=== PATIENT | female | born 1930 | race African-American/Black ===

== ENCOUNTER 2016-07-25 17:00 | Emergency (ER) | payer MEDICARE ==
[~2016-07-25] VITALS: Wt 45.4 kg
[~2016-07-25 17:00] MED LIST: 'BIAXIN500 MG PO; 'CLONIDINE0.1 MG PO; 'CYPROHEPTADINE4 MG PO; ACCUNEB 0.0.63 MG/3 INH; ACETAMINOPHEN325 M2 PO; ACETAMINOPHEN650 M5 PO; ALTACE10 MG PO; AMLODIPINE BESY1 TAB PO; AMOXICILLIN500 MG PO; ANTIVERT/2525 MG PO; ANTIVERT25 MG PO; APAP/OXYCODONE1 TA2 PO; ASPIR 8181 MG PO; ASPIRIN ADULT L81 M2 PO; ASPIRIN81 M1 PO; ATROVENT0.018 MG/A IH; CALCIUM ACETAT667 MG PO; CARAFATE1 GM PO; CATAPRES T0.3 MG/24 TD; CATAPRES-TTS 30.3 MG PO; CATAPRES-TTS 30.3 MG TD; CEPACOL2 M1 MM; CLONIDINE HCL0.1 MG PO; CLONIDINE0.1 MG PO; COLACE-T100 MG PO; COLACE100 MG PO; COMPAZINE10 MG PO; COZAAR100 MG PO; DEEP SEA 45 ML45 ML NAS; EVISTA60 MG PO; FISH OIL 500MG500 MG PO; FISH OIL PO; HYDROCODONE BIT1 T11 PO; IMDUR ER30 MG PO; IMDUR60 MG PO; KIONEX15 GM/60 M; LABETALOL HCL300 MG PO; LABETALOL HYDR300 MG PO; LABETALOL300 MG PO; LASIX20 MG PO; LASIX40 MG PO; LEVAQUIN750 M1 PO; LISINOPRIL10 MG PO; LISINOPRIL40 MG PO; LONITEN10 MG PO; LONITEN2.5 MG PO; MEGACE 40400 MG/10 PO; MEGACE40 MG PO; MINOXIDIL10 MG PO; MINOXIDIL2.5 MG PO; MIRALAX17 GM/DOSE PO; MOTRIN400 MG PO; Motrin,Rufen400 MG PO; NEPHRO-VITE RX1 TAB PO; NEPHRO-VITE1 TA1 PO; NEPHRO-VITE1 TAB PO; NORVASC10 MG PO; NORVASC5 MG PO; OCEAN NASAL SPR45 ML NAS; OMEPRAZOLE D/R20 MG PO; OMNICEF300 MG PO; OYSTER CALCIUM500 M1 PO; OYSTER SHELL C500 M2 PO; PANTOPRAZOLE40 MG PO; PLAVIX75 MG PO; PRAVACHOL20 MG PO; PRAVACHOL40 MG PO; PRAVACHOL80 MG PO; PREDNISONE10 MG PO; PREDNISONE50 MG PO; PRILOSEC20 M1 PO; PRILOSEC20 MG PO; PROMETHAZINE25 M1 PO; PT DOESN'T KNOW MEDS; Phenergan25 MG PO; REGLAN PO; REGLAN5 MG PO; RENA-VITE1 TAB PO; SENSIPAR30 MG PO; TRANDATE300 MG PO; TYLENOL650 M1 PO; TYLENOL650 MG PO; VERAPAMIL HCL180 M1 PO; VICODIN 5/500 505 MG PO; VITAMIN D1000 IU PO; VITAMIN D31000 I1 PO; VITAMIN D31000 I2 PO; VITAMIN D31000 IU PO; VITAMIN D32000 I1 PO; VOL-CARE PO; ZESTRIL,PRINIVI20 MG PO; ZOFRAN ODT4 MG PO; Zofran4 MG PO; [UNRECOGNIZED DRUG - OTHER] PO
[2016-07-25 18:03] LABS: BASO % 0.2 % (0.0-1.0); EOS % 0.5 % (1.0-4.0); LYMPH # 0.4 10*3/uL (1.3-4.4); LYMPH % 10.3 % (27.0-41.0); MEAN CELL VOLUME 87.2 fl (81.0-99.0); MEAN CORPUSCULAR HGB CONC 32.1 g/dl (33.0-37.0); MEAN PLATELET VOLUME 8.8 fl (9.6-12.3); MONO # 0.4 10*3/uL (0.1-1.0); MONO % 8.5 % (3.0-9.0); NEUT # 3.4 10*3/uL (2.3-7.9); NEUT % 80.3 % (47.0-73.0); PLATELET COUNT AUTOMATED 131 10*3/uL (130-400); RED BLOOD COUNT 3.21 10*6/uL (4.10-5.10); RED CELL DISTRI WIDTH 16.8 % (0-14.5); WHITE BLOOD COUNT 4.3 10*3/uL (4.8-10.8)
[2016-07-25 18:16] LABS: PROTHROMBIN TIME 10.7 SECONDS (9.0-12.4)
[2016-07-25 18:34] LABS: POTASSIUM 3.5 mmol/L (3.5-5.1)
[2016-07-25 18:35] LABS: ALBUMIN 2.2 gm/dl (3.1-4.5); BILIRUBIN, TOTAL 0.4 mg/dl (0.2-1.0); MAGNESIUM 1.5 mg/dL (1.5-2.1); TOTAL PROTEIN 6.2 gm/dL (6.4-8.2); TROPONIN I 0.035 ng/ml (<0.5)
[2016-07-25 19:45] VITALS: BP 156/88
[2016-08-16] MEDS ORDERED: LEVAQUIN500 M2 PO (10:50)
[2016-08-16] MEDS ORDERED: PREDNISONE10 MG PO (10:50)
[2016-08-16] MEDS ORDERED: LASIX20 MG PO (10:54)
[2016-08-18] MEDS ORDERED: MEGACE 40400 MG/10 PO (09:33)
== END 2016-07-25 20:27 | disposition home or self-care (01) ==
LOC: ED 17:00
PROVIDERS: Student in an Organized Health Care Education/Training Program
DX: T82.838A Hemorrhage due to vascular prosthetic devices, implants and grafts, initial encounter (principal); I25.10 Atherosclerotic heart disease of native coronary artery without angina pectoris; K21.9 Gastro-esophageal reflux disease without esophagitis; I99.8 Other disorder of circulatory system; E78.00 Pure hypercholesterolemia, unspecified; G43.909 Migraine, unspecified, not intractable, without status migrainosus; D64.9 Anemia, unspecified; I12.9 Hypertensive chronic kidney disease with stage 1 through stage 4 chronic kidney disease, or unspecified chronic kidney disease; N18.9 Chronic kidney disease, unspecified; Z79.899 Other long term (current) drug therapy

== ENCOUNTER 2016-09-17 21:58 | Inpatient (IN) | payer MEDICARE ==
[~2016-09-17] VITALS: Ht 152.4 cm; Wt 41.0 kg
--- NOTE | ~2016-09-17 | PR ---
[place], [place] PROGRESS NOTE NAME: GEORGINA ANDERSON [facility] #: [id number] UNIT #: [id number] ROOM: 526 DOCTOR: MAXIMINO MUÑOZ MD BIRTHDATE: [birth year] DOS: 09/20/2016 CARDIOLOGY PROGRESS NOTE SUBJECTIVE: The patient was seen at her bedside today, 09/20/2016, for followup of her fall at home. She is an 86-year-old woman with severe hypertension, end-stage renal disease and hypertensive heart disease. She is known to have mild coronary artery disease documented by cardiac catheterization in 2003, but has not had any recent chest pain. She presented after she fell at home. She is not able to tell us what happened that caused the fall. Her troponin level was mildly elevated after admission; however, the pattern was not consistent with an acute coronary event. It is much more likely that she does have chronic subendocardial ischemia from significant LVH and hypertension. I did review an echocardiogram which was performed on 09/18/2016, it showed normal left ventricular size with severe concentric left ventricular hypertrophy, normal segmental left ventricular wall motion and normal systolic function. She had a Doppler evidence for stage 2 diastolic relaxation abnormalities. The left atrium was severely dilated. She did have some thickening of the aortic valve, but no evidence for stenosis. PHYSICAL EXAMINATION: VITAL SIGNS: Today, her pulse is 80 and regular, blood pressure is 128/40. She is afebrile. She weighs 41 kilograms with a body mass index of 17.6. NECK: Supple. She has no jugular distention. LUNGS: Respirations are unlabored and her chest is clear to auscultation and percussion. HEART: Has a regular rhythm with frequent premature beats. She has a fourth heart sound, but no third heart sound and no significant murmurs. EXTREMITIES: Showed no ankle edema. IMPRESSION: 1. Fall with head trauma and pelvic fracture, mechanism of the fall is not clear. Differential diagnosis includes mechanical fall, orthostatic hypotension or potentially even an arrhythmia; however, no arrhythmias have been documented in the hospital and her pelvic fracture makes it difficult for us to check her for orthostasis. 2. Long-term severe hypertension with hypertensive heart disease. 3. End-stage renal disease, on dialysis. 4. History of mild coronary artery disease without current symptoms of angina. 5. Mild chronic elevation in troponin, most likely due to severe left ventricular hypertrophy, hypertension, end-stage renal disease and subendocardial ischemia. She shows no signs of an acute coronary event. PLAN: We will remain available to see her as needed. No other cardiac workup is planned at this time. We thank the hospitalist physicians for asking our advice regarding her care. Please do not hesitate to contact us if we can be of any further assistance. [place], [place] PROGRESS NOTE [facility]: [facility]ERSON [id number] UNIT #: [id number] ROOM: 526 DOCTOR: MAXIMINO MUÑOZ MD BIRTHDATE: [birth year] MAXIMINO MUÑOZ MD CM:PNTRANS [id number] [id number] MAXIMINO MUÑOZ MD 09/21/16 0027 interface
--- NOTE | ~2016-09-17 | CON ---
[place], [place] REPORT OF CONSULTATION NAME: GEORGINA ANDERSON [facility] #: [id number] UNIT #: [id number] ROOM: 526 DOCTOR: MAXIMINO MUÑOZ MD BIRTHDATE: [birth year] DOS: 09/18/2016 CARDIOLOGY CONSULTATION REASON FOR CONSULTATION: Elevated troponin. HISTORY OF PRESENT ILLNESS: The patient is an 86-year-old woman with multiple medical problems including severe hypertension and end-stage renal disease. She is known to have mild coronary artery disease documented by cardiac catheterization in 2003. She denies having a heart attack or any chest pain. She has had hospitalizations for heart failure due to renal failure and diastolic dysfunction. She also has a history of end-stage renal disease, diabetes, hyperlipidemia, hypertension, osteopetrosis, and peripheral artery disease. She was at home yesterday and got up to get into a chair. Apparently, she did fall. She herself cannot recall what happened. She states that she was getting up and the next thing she knew was she was on the floor. She does not recall being dizzy or having any palpitations or chest pain. She was brought to the Emergency Room where she was found to have a large hematoma on the back of her head. She was also found to have a pelvic fracture. She is being managed conservatively for these lesions. The patient denies any chest pain or palpitations. She denies any lightheadedness. She does not think she has ever passed out. PAST MEDICAL HISTORY: Includes: 1. Long-term severe hypertension. 2. End-stage renal disease. 3. Mild coronary artery disease documented by catheterization at [facility] in 2004. 4. Recurrent pulmonary edema due to renal failure and diastolic heart failure. 5. End-stage renal disease, on dialysis 3 times a week. 6. Type 2 diabetes mellitus. 7. Hyperlipidemia. 8. Osteoporosis. 9. Peripheral arterial disease. MEDICATIONS: Prior to admission, saline nasal spray p.r.n., amlodipine 10 mg daily, vitamin D3 1000 units daily, Sensipar 30 mg every Sunday morning, hydrocodone with acetaminophen b.i.d., labetalol 300 mg t.i.d., losartan 100 mg daily, minoxidil 2.5 mg daily, omeprazole 20 mg daily, polyethylene glycol 17 grams at bedtime p.r.n., pravastatin 20 mg 3 tablets at bedtime, Evista 60 mg daily, Ramipril 10 mg daily, vitamin B complex daily, and clonidine TTS patch size 3 applied weekly. ALLERGIES: The patient lists allergies to IODINE. REVIEW OF SYSTEMS: The patient denies diplopia or loss of vision. She denies syncope. She does not think she was lightheaded. She does have some pain on the back of her head and neck. She denies nausea or vomiting. She denies [place], [place] REPORT OF CONSULTATION NAME: GEORGINA ANDERSON UNIT #: [id number] ROOM: 526 DOCTOR: MAXIMINO MUÑOZ MD BIRTHDATE: [birth year] fevers, chills, sweats, or recent weight change, although she says in general, she has lost weight over the years. She denies nausea or vomiting. She denies any hemoptysis or hematemesis. She denies bleeding from any orifice. She denies any change in her appetite. She denies any change in bowel or bladder habits. She denies any peripheral edema. She does have some pain in her pelvic area. The remainder of the review of systems is negative except as noted above. FAMILY HISTORY: Her son has hypertension and cardiac arrhythmia. She does not know anything about her parents' history because she was adopted. SOCIAL HISTORY: The patient does not use alcohol, illegal drugs, or tobacco. PHYSICAL EXAMINATION: GENERAL: The patient is a slender, elderly woman, who is awake, alert, and oriented. She is pleasant and conversant. VITAL SIGNS: Pulse is 75 with frequent premature beats. Blood pressure is 150/54. She is afebrile. She weighs 41.5 kg and has a body mass index of 17.9. HEENT: Normocephalic, atraumatic. Extraocular muscles are intact. Sclerae are clear. Pupils are equal, round, and reactive to light. The oral mucosa is moist. Tongue is midline. NECK: Supple. She has no jugular distention or hepatojugular reflux. Carotids are full. I heard no bruits. CHEST: Respirations are unlabored. Chest is clear to auscultation and percussion. She has no presacral edema or chest wall tenderness. CARDIOVASCULAR: Her heart has a regular rhythm with frequent premature beats. She has a fourth heart sound, but no third heart sound. She has no significant murmurs. The PMI is not displaced. There is no precordial heave, lift, or thrill. She has a very large, ropy, and irregular shunt in her left upper arm for dialysis. ABDOMEN: Soft and normally active without masses, organomegaly, or bruits. EXTREMITIES: Show no ankle edema. Peripheral pulses could not be felt in the feet. DIAGNOSTIC AND LABORATORY DATA: I reviewed her electrocardiogram, which showed a sinus rhythm with left ventricular hypertrophy and secondary ST and T-wave changes along with frequent premature atrial contractions. Hemoglobin is 8.7, hematocrit 27.9. There were 5300 white cells and 139,000 platelets present. Sodium is 140, potassium is 4.1, BUN 24, creatinine 2.71. Troponin levels were elevated at 0.128 and 0.131 respectively. Review of previous troponin levels shows that she does have mildly elevated troponins chronically at least as far back as 06/2016. I reviewed her echocardiogram, and it shows severe concentric left ventricular hypertrophy with normal left ventricular regional wall motion and systolic function. There is Doppler evidence for stage 2 diastolic relaxation abnormalities. She has aortic sclerosis, but no stenosis. No other significant valve abnormalities are present. She does have a trivial pericardial effusion, which appears to have no hemodynamic consequences. [place], [place] REPORT OF CONSULTATION NAME: [facility] ANDERSON [facility] [id number] UNIT #: [id number] ROOM: 526 DOCTOR: MAXIMINO MUÑOZ MD BIRTHDATE: [birth year] IMPRESSION: 1. Fall with head trauma and pelvic fracture. The mechanism of fall is not currently clear. This could have been a mechanical fall or she could have had orthostatic hypotension or potentially even an arrhythmia. Thus far, her evaluation has been unremarkable, however. 2. Long-term severe hypertension with hypertensive heart disease. 3. End-stage renal disease, on dialysis. 4. History of mild coronary artery disease without current symptoms. 5. Mild chronic elevation in troponin, most likely due to severe left ventricular hypertrophy, hypertension, and end-stage renal disease. The patient shows no signs of an acute coronary event. 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 We will follow the patient intermittently as indicated. No other cardiac evaluation is felt to be indicated at this time. We thank the hospitalist physicians for asking our advice regarding her management. MAXIMINO MUÑOZ MD CM:CONSTR:REPORT OF CONSULTATION 1757 09/19/16 0304 interface
[~2016-09-17 21:58] MED LIST changes: +LEVAQUIN500 M2 PO
[2016-09-17 22:04] VITALS: BP 196/78
[2016-09-17] MEDS ORDERED: LABETALOL HCL300 MG PO (22:15)
[2016-09-17] MEDS ORDERED: VITAMIN D31000 I1 PO (22:20)
[2016-09-17] MEDS ORDERED: ALBUTEROL2.5 MG/0.5 INH (22:21)
[2016-09-18 01:07] VITALS: BP 170/56
[2016-09-18 03:00] VITALS: BP 182/73
[2016-09-18 05:53] LABS: CKMB 1.5 ng/ml (0.5-3.6)
[2016-09-18 05:59] LABS: TROPONIN I 0.128 ng/ml (<0.045)
[2016-09-18 06:02] LABS: ESTIMATED AVERAGE GLUCOSE 54; HEMOGLOBIN A1c < 3.5 % (4.8-5.6)
[2016-09-18 06:05] LABS: BASO % 0.2 % (0.0-1.0); EOS # 0.1 10*3/uL (0.0-0.4); EOS % 0.9 % (1.0-4.0); HEMATOCRIT 27.9 % (37.0-47.0); HEMOGLOBIN 8.7 g/dl (12.0-16.0); IG # 0.1 10*3/uL (0.0-0.1); LYMPH # 0.7 10*3/uL (1.3-4.4); LYMPH % 12.8 % (27.0-41.0); MEAN CELL VOLUME 87.7 fl (81.0-99.0); MEAN CORPUSCULAR HGB 27.4 pg (27.0-31.0); MEAN CORPUSCULAR HGB CONC 31.2 g/dl (33.0-37.0); MEAN PLATELET VOLUME 9.4 fl (9.6-12.3); MONO # 0.8 10*3/uL (0.1-1.0); MONO % 14.7 % (3.0-9.0); NEUT # 3.7 10*3/uL (2.3-7.9); NEUT % 70.3 % (47.0-73.0); PLATELET COUNT AUTOMATED 139 10*3/uL (130-400); RED BLOOD COUNT 3.18 10*6/uL (4.10-5.10); RED CELL DISTRI WIDTH 17.7 % (0-14.5); WHITE BLOOD COUNT 5.3 10*3/uL (4.8-10.8)
[2016-09-18 06:12] LABS: INTERNATIONAL NORM RATIO 1.1 (2.0-3.5); PROTHROMBIN TIME 11.2 SECONDS (9.0-12.4)
[2016-09-18 06:16] LABS: THYROID STIM HORMONE (HS) 1.21 uIU/ml (0.358-4.75)
[2016-09-18 07:16] LABS: VITAMIN D, 25-HYDROXY 45.3 ng/mL (30-100)
[2016-09-18 07:17] LABS: FOLIC ACID 16.84 ng/mL (>5.38)
[2016-09-18 07:42] LABS: ALBUMIN 1.9 gm/dl (3.1-4.5); BILIRUBIN, TOTAL 0.5 mg/dl (0.2-1.0); MAGNESIUM 1.4 mg/dL (1.5-2.1); POTASSIUM 4.1 mmol/L (3.5-5.1); TOTAL PROTEIN 5.1 gm/dL (6.4-8.2)
[2016-09-18 07:43] LABS: FREE T4 0.92 ng/dl (0.76-1.46)
[2016-09-18 08:00] VITALS: BP 130/68
[2016-09-18 12:00] VITALS: BP 120/50
[2016-09-18 12:24] LABS: CKMB 1.3 ng/ml (0.5-3.6)
[2016-09-18 12:27] LABS: TROPONIN I 0.131 ng/ml (<0.045)
[2016-09-18 16:00] VITALS: BP 150/54
[2016-09-18 18:34] LABS: CKMB 1.4 ng/ml (0.5-3.6)
[2016-09-18 18:38] LABS: TROPONIN I 0.11 ng/ml (<0.045)
[2016-09-18 20:00] VITALS: BP 141/51
[2016-09-19] VITALS: BP 140/87
[2016-09-19 07:57] LABS: ALBUMIN 1.8 gm/dl (3.1-4.5); MAGNESIUM 1.4 mg/dL (1.5-2.1); PHOSPHOROUS 3.7 mg/dL (2.5-4.9); POTASSIUM 4.5 mmol/L (3.5-5.1)
[2016-09-19 08:00] VITALS: BP 152/58
[2016-09-19 12:00] VITALS: BP 149/56
[2016-09-19 20:00] VITALS: BP 163/74
[2016-09-19 22:27] VITALS: BP 142/56
[2016-09-20] VITALS (7 sets, daily range): BP systolic 128–186; BP diastolic 40–70
[2016-09-20 07:10] LABS: ALBUMIN 1.7 gm/dl (3.1-4.5); PHOSPHOROUS 2.7 mg/dL (2.5-4.9); POTASSIUM 3.9 mmol/L (3.5-5.1)
[2016-09-21] VITALS (8 sets, daily range): BP systolic 141–190; BP diastolic 46–65
[2016-09-21 07:22] LABS: BASO % 0.2 % (0.0-1.0); EOS # 0.1 10*3/uL (0.0-0.4); EOS % 1.9 % (1.0-4.0); HEMOGLOBIN 8.4 g/dl (12.0-16.0); LYMPH % 18.9 % (27.0-41.0); MEAN CELL VOLUME 85.8 fl (81.0-99.0); MEAN CORPUSCULAR HGB 27.7 pg (27.0-31.0); MEAN CORPUSCULAR HGB CONC 32.3 g/dl (33.0-37.0); MEAN PLATELET VOLUME 9.4 fl (9.6-12.3); MONO % 18.7 % (3.0-9.0); NEUT # 3.2 10*3/uL (2.3-7.9); NEUT % 59.9 % (47.0-73.0); PLATELET COUNT AUTOMATED 182 10*3/uL (130-400); RED BLOOD COUNT 3.03 10*6/uL (4.10-5.10); RED CELL DISTRI WIDTH 17.5 % (0-14.5); WHITE BLOOD COUNT 5.3 10*3/uL (4.8-10.8)
[2016-09-21 07:39] LABS: ALBUMIN 1.7 gm/dl (3.1-4.5); MAGNESIUM 1.6 mg/dL (1.5-2.1); POTASSIUM 4.2 mmol/L (3.5-5.1)
[2016-09-21 07:44] LABS: BILIRUBIN, TOTAL 0.5 mg/dl (0.2-1.0); PHOSPHOROUS 2.8 mg/dL (2.5-4.9); TOTAL PROTEIN 5.3 gm/dL (6.4-8.2)
[2016-09-21] MEDS ORDERED: LASIX40 MG PO (10:17)
[2016-09-21] MEDS ORDERED: ASPIRIN ADULT L81 M1 PO (10:18)
[2016-09-22] VITALS: BP 157/58
[2016-09-22 06:32] LABS: BASO % 0.4 % (0.0-1.0); EOS # 0.1 10*3/uL (0.0-0.4); EOS % 1.4 % (1.0-4.0); HEMATOCRIT 25.6 % (37.0-47.0); HEMOGLOBIN 8.1 g/dl (12.0-16.0); LYMPH % 17.4 % (27.0-41.0); MEAN CELL VOLUME 85.3 fl (81.0-99.0); MEAN CORPUSCULAR HGB CONC 31.6 g/dl (33.0-37.0); MEAN PLATELET VOLUME 9.3 fl (9.6-12.3); MONO % 17.2 % (3.0-9.0); NEUT # 3.5 10*3/uL (2.3-7.9); NEUT % 63.1 % (47.0-73.0); PLATELET COUNT AUTOMATED 169 10*3/uL (130-400); RED CELL DISTRI WIDTH 17.2 % (0-14.5); WHITE BLOOD COUNT 5.6 10*3/uL (4.8-10.8)
[2016-09-22 06:50] LABS: ALBUMIN 1.7 gm/dl (3.1-4.5); MAGNESIUM 1.4 mg/dL (1.5-2.1); PHOSPHOROUS 1.5 mg/dL (2.5-4.9)
[2016-09-22 08:00] VITALS: BP 148/60
[2016-09-22 12:00] VITALS: BP 140/62
== END 2016-09-22 13:42 | disposition other institution (70) | DRG 535 ==
LOC: ED 21:58 → 5E 09-18 02:18
PROVIDERS: Hospitalist; Internal Medicine; Student in an Organized Health Care Education/Training Program
DX: S32.591A Other specified fracture of right pubis, initial encounter for closed fracture (principal); N18.6 End stage renal disease; E43 Unspecified severe protein-calorie malnutrition; I13.2 Hypertensive heart and chronic kidney disease with heart failure and with stage 5 chronic kidney disease, or end stage renal disease; I16.1 Hypertensive emergency; I50.32 Chronic diastolic (congestive) heart failure; Z68.1 Body mass index [BMI] 19.9 or less, adult; E83.42 Hypomagnesemia; I10 Essential (primary) hypertension; I25.10 Atherosclerotic heart disease of native coronary artery without angina pectoris; K21.9 Gastro-esophageal reflux disease without esophagitis; E78.00 Pure hypercholesterolemia, unspecified; S00.03XA Contusion of scalp, initial encounter; G43.909 Migraine, unspecified, not intractable, without status migrainosus; M81.0 Age-related osteoporosis without current pathological fracture; I73.9 Peripheral vascular disease, unspecified; R62.7 Adult failure to thrive; W18.30XA Fall on same level, unspecified, initial encounter; Z99.2 Dependence on renal dialysis; Z90.49 Acquired absence of other specified parts of digestive tract; Z82.49 Family history of ischemic heart disease and other diseases of the circulatory system; Z91.041 Radiographic dye allergy status; Z79.899 Other long term (current) drug therapy; Y93.89 Activity, other specified; Y99.8 Other external cause status; Y92.009 Unspecified place in unspecified non-institutional (private) residence as the place of occurrence of the external cause

== ENCOUNTER → 2016-10-09 | Outpatient (CLI) | payer MEDICARE ==
[~2016-10-09] MED LIST changes: +ALBUTEROL2.5 MG/0.5 INH; +ASPIRIN ADULT L81 M1 PO; +DULCOLAX10 M1 RC; +LISINOPRIL20 MG PO
[2016-10-09 10:30] VITALS: BP 129/41
[2016-10-09 12:20] VITALS: BP 139/42
[2016-10-09 13:20] VITALS: BP 136/40
[2016-10-09 14:10] VITALS: BP 109/60
[2016-10-09 15:32] VITALS: BP 110/64
[2016-10-09 19:51] VITALS: BP 112/66
== END | disposition home or self-care (01) ==
LOC: TRNFUSION 10:00
DX: R79.89 Other specified abnormal findings of blood chemistry (principal); D63.1 Anemia in chronic kidney disease

== ENCOUNTER → 2016-12-01 | Outpatient (CLI) | payer MEDICARE | LOC: RAD 16:09 | DX: I11.0 Hypertensive heart disease with heart failure (principal); I50.32 Chronic diastolic (congestive) heart failure; I25.10 Atherosclerotic heart disease of native coronary artery without angina pectoris; I51.7 Cardiomegaly; E11.9 Type 2 diabetes mellitus without complications; J90 Pleural effusion, not elsewhere classified ==

== ENCOUNTER → 2016-12-11 | Day surgery (SDC) | payer MEDICARE ==
[~2016-12-11] MED LIST changes: +CILOXAN 5 ML5 M1 OT
--- NOTE | ~2016-12-11 | O ---
[place], [place] OPERATIVE NOTE NAME: GEORGINA ANDERSON UNIT #: [id number] ROOM: DOCTOR: SIS RODRIGUEZ MD BIRTHDATE: [birth year] DOS: 12/11/2016 PREOPERATIVE DIAGNOSIS: Chronic otitis media with effusion. POSTOPERATIVE DIAGNOSES: Chronic otitis media with effusion. OPERATION: Left tympanostomy with tube placement. SURGEON: Dr. Rodriguez ANESTHESIA: General OPERATIVE FINDINGS AND PROCEDURE: The patient was taken to the operating room for left tympanostomy with tube placement. Following induction of general anesthesia, the patient was positioned supine on the OR table and draped in the standard fashion for ear surgery. The surgical microscope was brought into the operative field. The left ear was examined. Myringotomy was performed. Standard Steve tympanostomy tube was inserted, and topical Ciprofloxacin drops were instilled. The patient tolerated the procedure well, was awakened, and transported to PACU in satisfactory condition. SIS RODRIGUEZ MD CM:OPRECORD:OPERATIVE NOTE [id number] SIS RODRIGUEZ MD 12/11/16 1025 interface
[2016-12-11 06:45] VITALS: BP 190/63
[2016-12-11 07:53] VITALS: BP 165/54
[2016-12-11 08:05] VITALS: BP 174/63
[2016-12-11 08:22] VITALS: BP 164/55
== END | disposition home or self-care (01) ==
LOC: SDC 12-08 12:30
DX: H65.492 Other chronic nonsuppurative otitis media, left ear (principal); E11.9 Type 2 diabetes mellitus without complications; D64.9 Anemia, unspecified; M19.90 Unspecified osteoarthritis, unspecified site; I50.9 Heart failure, unspecified; E78.5 Hyperlipidemia, unspecified; I12.0 Hypertensive chronic kidney disease with stage 5 chronic kidney disease or end stage renal disease; N18.6 End stage renal disease; E55.9 Vitamin D deficiency, unspecified; I25.10 Atherosclerotic heart disease of native coronary artery without angina pectoris; M81.0 Age-related osteoporosis without current pathological fracture; Z86.14 Personal history of Methicillin resistant Staphylococcus aureus infection; Z98.51 Tubal ligation status; Z95.1 Presence of aortocoronary bypass graft; I73.9 Peripheral vascular disease, unspecified; Z99.2 Dependence on renal dialysis; G43.909 Migraine, unspecified, not intractable, without status migrainosus

== ENCOUNTER → 2017-01-10 | Outpatient (CLI) | payer MEDICARE | END | disposition home or self-care (01) | LOC: RAD 15:33 | DX: J90 Pleural effusion, not elsewhere classified (principal); I70.0 Atherosclerosis of aorta; J98.11 Atelectasis; Z95.828 Presence of other vascular implants and grafts ==

== ENCOUNTER → 2017-04-04 | Outpatient (CLI) | payer MEDICARE | END | disposition home or self-care (01) | LOC: RAD 16:08 | DX: I51.7 Cardiomegaly (principal); J98.11 Atelectasis; I10 Essential (primary) hypertension; E11.9 Type 2 diabetes mellitus without complications; Z87.891 Personal history of nicotine dependence ==

== ENCOUNTER 2017-05-12 22:47 | Inpatient (IN) | payer MEDICARE ==
[~2017-05-12] VITALS: Ht 152.4 cm; Wt 39.3 kg
[~2017-05-12 22:47] MED LIST changes: +MIRALAX17 GM PO
[2017-05-12 22:53] VITALS: BP 219/75
[2017-05-12 23:01] VITALS: BP 210/70
[2017-05-12 23:31] LABS: BASO % 0.3 % (0.0-1.0); EOS # 0.1 10*3/uL (0.0-0.4); EOS % 0.9 % (1.0-4.0); HEMATOCRIT 34.1 % (37.0-47.0); HEMOGLOBIN 10.9 g/dl (12.0-16.0); LYMPH # 1.1 10*3/uL (1.3-4.4); MEAN CELL VOLUME 86.3 fl (81.0-99.0); MEAN CORPUSCULAR HGB 27.6 pg (27.0-31.0); MEAN PLATELET VOLUME 9.5 fl (9.6-12.3); MONO # 0.7 10*3/uL (0.1-1.0); MONO % 12.9 % (3.0-9.0); NEUT # 3.8 10*3/uL (2.3-7.9); NEUT % 66.6 % (47.0-73.0); PLATELET COUNT AUTOMATED 184 10*3/uL (130-400); RED BLOOD COUNT 3.95 10*6/uL (4.10-5.10); RED CELL DISTRI WIDTH 16.7 % (0-14.5); WHITE BLOOD COUNT 5.7 10*3/uL (4.8-10.8)
--- NOTE | 2017-05-12 23:37 | NUR ---
FISTULA LEFT ARM LIMB ALERT BAND APPLIED TO LFT ARM
[2017-05-12 23:42] LABS: ACT PARTIAL THROMBO TIME 24.9 SECONDS (20.8-31.5)
[2017-05-12 23:49] LABS: ALBUMIN 3.1 gm/dl (3.1-4.5); CREATININE 1.92 mg/dL (0.55-1.02); POTASSIUM 4.1 mmol/L (3.5-5.1); TOTAL PROTEIN 7.9 gm/dL (6.4-8.2)
[2017-05-12 23:53] LABS: TROPONIN I 0.064 ng/ml (<0.045)
[2017-05-12 23:58] VITALS: BP 203/63
[2017-05-13] VITALS (7 sets, daily range): BP systolic 154–203; BP diastolic 53–140
--- NOTE | 2017-05-13 00:17 | NUR ---
PATIENT IN BED, SON AT BEDSIDE, STATES PAIN IS NOW BETWEEN A 5-7 /10 WAS 10/10 UPON ARRIVAL
--- NOTE | 2017-05-13 01:00 | NUR ---
PT GIVEN PRN RESTEROL FOR INSOMNIA. WILL CONTINUE TO MONITOR
[2017-05-13] MEDS ORDERED: NORCO 5-325 TA1 EACH PO (01:19)
[2017-05-13] MEDS ORDERED: DEEP SEA44 ML NAS (01:25)
[2017-05-13] MEDS ORDERED: RAMIPRIL10 MG PO (01:31)
--- NOTE | 2017-05-13 01:33 | NUR ---
DR. ARREDONDO NOTIFIED OF SECOND HIGH TROPONIN LEVEL OF 0.071. NO NEW ORDERS AT THIS TIME. WILL CONINUE TO MONITOR PT.
--- NOTE | 2017-05-13 01:45 | NUR ---
ASSUMED CARE OF PT. DR. GONZALEZ'S OFFICE NPOTIFIED OF CONSULT. IDA RECIEVED CONSULT AND WILL PASS IT ON TO DR. GONZALEZ.
[2017-05-13 05:46] LABS: BASO % 0.4 % (0.0-1.0); EOS # 0.1 10*3/uL (0.0-0.4); EOS % 1.3 % (1.0-4.0); HEMATOCRIT 32.1 % (37.0-47.0); HEMOGLOBIN 10.2 g/dl (12.0-16.0); LYMPH # 1.4 10*3/uL (1.3-4.4); LYMPH % 26.5 % (27.0-41.0); MEAN CORPUSCULAR HGB 27.6 pg (27.0-31.0); MEAN CORPUSCULAR HGB CONC 31.8 g/dl (33.0-37.0); MEAN PLATELET VOLUME 9.6 fl (9.6-12.3); MONO # 0.8 10*3/uL (0.1-1.0); NEUT # 2.9 10*3/uL (2.3-7.9); NEUT % 56.6 % (47.0-73.0); PLATELET COUNT AUTOMATED 170 10*3/uL (130-400); RED BLOOD COUNT 3.69 10*6/uL (4.10-5.10); RED CELL DISTRI WIDTH 16.7 % (0-14.5); WHITE BLOOD COUNT 5.2 10*3/uL (4.8-10.8)
[2017-05-13 05:52] LABS: CREATININE 2.31 mg/dL (0.55-1.02); PHOSPHOROUS 3.2 mg/dL (2.5-4.9); POTASSIUM 3.9 mmol/L (3.5-5.1)
[2017-05-13 05:58] LABS: THYROID STIM HORMONE (HS) 1.91 uIU/ml (0.358-4.75)
[2017-05-13 06:12] LABS: ACT PARTIAL THROMBO TIME 25.9 SECONDS (20.8-31.5)
--- NOTE | 2017-05-13 06:58 | NUR ---
NOTIFIED OF SHORT RUN OF AFIB. EKG STAT, ECHO, HEP BOLUS, AND HEP DVT PROPHYLAXICS ORDERED FOR PT. CONSULTS AWARE
[2017-05-13 07:29] LABS: VITAMIN D, 25-HYDROXY 46.3 ng/mL (30-100)
--- NOTE | 2017-05-13 16:23 | NUR ---
Discharge instructions reviewed with patient/family. Patient receptive and verbalizes understanding. Follow-up care arranged. Written instructions given to patient/family. MARIA E SHEPHERD
== END 2017-05-13 16:23 | disposition home or self-care (01) | DRG 304 ==
LOC: ED 22:47 → EDHOLD 23:58 → 5E 05-13 00:05
PROVIDERS: Internal Medicine; Student in an Organized Health Care Education/Training Program; ADMIT Internal Medicine
DX: I16.0 Hypertensive urgency (principal); N18.6 End stage renal disease; E87.8 Other disorders of electrolyte and fluid balance, not elsewhere classified; I25.811 Atherosclerosis of native coronary artery of transplanted heart without angina pectoris; E87.1 Hypo-osmolality and hyponatremia; I13.2 Hypertensive heart and chronic kidney disease with heart failure and with stage 5 chronic kidney disease, or end stage renal disease; D64.9 Anemia, unspecified; I73.9 Peripheral vascular disease, unspecified; R74.8 Abnormal levels of other serum enzymes; E61.1 Iron deficiency; M81.0 Age-related osteoporosis without current pathological fracture; G43.909 Migraine, unspecified, not intractable, without status migrainosus; E78.00 Pure hypercholesterolemia, unspecified; K21.9 Gastro-esophageal reflux disease without esophagitis; R62.7 Adult failure to thrive; I50.9 Heart failure, unspecified; Z91.041 Radiographic dye allergy status; Z79.82 Long term (current) use of aspirin; Z79.899 Other long term (current) drug therapy; Z90.49 Acquired absence of other specified parts of digestive tract; Z90.89 Acquired absence of other organs; Z98.51 Tubal ligation status; Z82.49 Family history of ischemic heart disease and other diseases of the circulatory system; Z99.2 Dependence on renal dialysis

== ENCOUNTER → 2017-06-13 | Outpatient (CLI) | payer MEDICARE ==
[~2017-06-13] MED LIST changes: +DEEP SEA44 ML NAS; +NORCO 5-325 TA1 EACH PO; +RAMIPRIL10 MG PO
== END ==
LOC: US 12:48
DX: S20.02XA Contusion of left breast, initial encounter (principal); X58.XXXA Exposure to other specified factors, initial encounter; Y93.89 Activity, other specified; Y92.89 Other specified places as the place of occurrence of the external cause; Y99.8 Other external cause status

== ENCOUNTER → 2017-07-25 | Outpatient (CLI) | payer MEDICARE | LOC: RAD 16:38 | DX: J90 Pleural effusion, not elsewhere classified (principal); I51.7 Cardiomegaly; J84.10 Pulmonary fibrosis, unspecified; E11.9 Type 2 diabetes mellitus without complications; I10 Essential (primary) hypertension; N19 Unspecified kidney failure; Z99.2 Dependence on renal dialysis; Z87.891 Personal history of nicotine dependence ==

== ENCOUNTER → 2017-08-24 | Outpatient (CLI) | payer MEDICARE | END | disposition home or self-care (01) | LOC: RAD 16:22 | DX: M16.11 Unilateral primary osteoarthritis, right hip (principal); M25.751 Osteophyte, right hip ==

== ENCOUNTER → 2017-11-12 | Outpatient (CLI) | payer MEDICARE | END | disposition home or self-care (01) | LOC: RAD 15:54 | DX: M15.4 Erosive (osteo)arthritis (principal) ==

== ENCOUNTER 2018-01-04 06:58 | Inpatient (IN) | payer MEDICARE ==
[~2018-01-04] VITALS: Ht 152.4 cm; Wt 45.0 kg
--- NOTE | ~2018-01-04 | CON ---
[place], [place] REPORT OF CONSULTATION NAME: GEORGINA ANDERSON UNIT #: [id number] ROOM: 426 DOCTOR: ANALI WOOD,GREYDenise BIRTHDATE: [birth year] DOS: 01/11/2018 CARDIOLOGY CONSULT REASON FOR CONSULTATION: Abnormal EKG. CLINICAL HISTORY: The patient is an 87-year-old patient with history of coronary artery disease, hypertension, end-stage renal disease who was admitted after a fall at home. She denies any loss of consciousness. She has no chest pain, shortness of breath or palpitations. During dialysis, on the monitor, she was noted to have T-wave inversion and Cardiology was consulted for further recommendations. She has history of hypertension, severe LV hypertrophy by echo and also chronic anemia. Again, at the time of examination, the patient is alert, comfortable, no acute distress. Denies any chest pain or shortness of breath. No palpitation, no dizziness, no nausea, vomiting, no PND, no orthopnea. REVIEW OF SYSTEMS: Review of the 10-system negative except as mentioned above. PAST MEDICAL HISTORY: 1. Coronary artery disease. 2. Hypertension. 3. End-stage renal disease, on hemodialysis. 4. Chronic anemia. 5. Dyslipidemia. 6. Peripheral vascular disease. 7. Acid reflux. PAST SURGICAL HISTORY: History of cholecystectomy, hip surgery, vertebroplasty. SOCIAL HISTORY: The patient does not smoke, does not drink, does not use illicit drugs. FAMILY HISTORY: Son has some heart arrhythmias and hypertension. ALLERGIES: The patient is allergic to IODINE. HOME MEDICATIONS: Reviewed. PHYSICAL EXAMINATION: VITAL SIGNS: Blood pressure 163/52, pulse 67, respiratory rate 16, weight 44.9 kilos with a BMI 19.4. GENERAL: Alert, comfortable, in no acute distress. HEENT: Pupils round, equal. No jaundice. NECK: Supple, no distended neck veins, no carotid bruit. CHEST: Symmetrical, nontender. LUNGS: Diffuse scattered rhonchi, but good air entry bilaterally. HEART: Regular rhythm, no S3, no palpable thrills. ABDOMEN: Benign, nontender. Bowel sounds normal. EXTREMITIES: Showed no edema. Distal pulses palpable. [place], [place] REPORT OF CONSULTATION NAME: GEORGINA ANDERSON UNIT #: [id number] ROOM: 426 DOCTOR: ANALI WOOD,LAZARO BIRTHDATE: [birth year] SKIN: Warm and dry. No cyanosis, no clubbing. RECTAL: Deferred. GENITOURINARY: Deferred. NEUROLOGIC: The patient is alert, oriented. No focal neurologic deficit. REVIEW OF THE DIAGNOSTIC TESTS: EKG showed sinus rhythm with inferolateral T inversion. Echo from 09/2016 reviewed, stress test from 09/2015 reviewed. Pertinent labs include hemoglobin 8.4, white cell count 6.1 thousand, platelets 185,000. Creatinine 2.2, potassium 4.3, total cholesterol 176, LDL 86, HDL 85. IMPRESSION: 1. Abnormal EKG with inferolateral ST-T changes, probably due to her severe left ventricular hypertrophy. 2. Coronary artery disease, stable and without chest pain. 3. Hypertension. Continue current medications. Monitor blood pressures. 4. End stage renal disease, on hemodialysis. 5. Chronic anemia. RECOMMENDATIONS: 1. Continue the aspirin, beta blockers, BALA inhibitors and statins. 2. Continue to monitor her H and H and blood pressures. 3. There is no further cardiac testing at this time and the Cardiology will sign off and please call us if needed. 4. Her EKG finding is most likely due to her severe concentric LV hypertrophy, which was noted in her 2D echo. LAZARO BRIONES MD CM:CONSTR:REPORT OF CONSULTATION 1225 02/18/18 0725 interface
--- NOTE | ~2018-01-04 | PR ---
[place], [place] PROGRESS NOTE NAME: GEORGINA ANDERSON UNIT #: [id number] ROOM: 426 DOCTOR: DONAL WOOD,KATIE Ahuja BIRTHDATE: [birth year] DOS: 01/06/2018 NEPHROLOGY FOLLOWUP NOTE SUBJECTIVE: The patient was seen this afternoon. She was lying in bed. She was on room air. She was in no acute distress. No major changes or major events were noted. PHYSICAL EXAMINATION: VITAL SIGNS: Showed temperature 98.4, pulse 65, respiration rate 16, blood pressure 162/94. HEENT: Shows no JVD. LUNGS: Diminished breath sounds with no wheeze. HEART: S1, S2. No rub. ABDOMEN: Soft, nontender. EXTREMITIES: Showed no edema. SKIN: Showed no rash. LABORATORY DATA: Hemoglobin 10.0, white count of 5.8, platelets 178. Sodium 127, potassium 3.8, CO2 of 26, BUN 22, creatinine 2.7, glucose of 85, calcium of 8.6. ASSESSMENT AND PLAN: 1. End-stage renal disease, on hemodialysis Sunday, , and Sunday through a tunneled dialysis catheter. The patient will continue dialysis as per schedule. 2. Hyponatremia. It seems odd that this is lower following dialysis yesterday. Place on the fluid restriction. We will try to slowly correct with dialysis. 3. Status post fall with hip contusion. Continue supportive care. 4. Anemia of chronic disease. As-needed, ESAs with dialysis. 5. Tertiary hyperparathyroidism. Continue Sensipar. 6. Hypertension. Continue meds. KATIE MANSFIELD MD CM:PNTRANS 1451 [id number] KATIE MANSFIELD MD 01/07/18 0053 interface
--- NOTE | ~2018-01-04 | PR ---
[place], [place] PROGRESS NOTE NAME: GEORGINA ANDERSON UNIT #: [id number] ROOM: 426 DOCTOR: KATIE MANSFIELD MD BIRTHDATE: [birth year] DOS: 01/09/2018 NEPHROLOGY FOLLOWUP NOTE SUBJECTIVE: The patient was seen and examined. She looks good. She was awake and alert, sitting in a chair and eating her lunch. She denies shortness of breath, nausea or vomiting. PHYSICAL EXAMINATION: VITAL SIGNS: Temperature 98.7, pulse 64, respiratory rate 20, and blood pressure 152/48. HEENT: Shows no JVD. LUNGS: Diminished breath sounds with no wheeze. HEART: S1, S2. No rub. ABDOMEN: Soft, nontender. There is no organomegaly. EXTREMITIES: Had no edema. LABORATORY DATA: No labs were noted for today. I did note from yesterday, hemoglobin 8.8, white count of 7.0, and platelets 141. BUN 63, creatinine 5.2, sodium was noted to be 119 with a potassium of 5.7, and CO2 of 19. Again, these were before dialysis. ASSESSMENT AND PLAN: 1. End-stage renal disease, on hemodialysis Sunday, and Sunday. Dialysis will be planned for tomorrow. 2. Hyponatremia. The patient has been placed on a fluid restriction. Not clear why she has severe hyponatremia, aside from the possibility of her drinking too much fluid. Would continue oral fluid restriction. We will correct her sodium slowly with dialysis. 3. Anemia. Transfuse as needed. ESAs as needed with dialysis. 4. Weakness and deconditioning. She is awaiting placement. KATIE MANSFIELD MD CM:PNTRANS 1331 0005 KATIE MANSFIELD MD 01/10/18 0004 interface
--- NOTE | ~2018-01-04 | CON ---
[place], [place] REPORT OF CONSULTATION NAME: GEORGINA ANDERSON UNIT #: [id number] ROOM: 426 DOCTOR: KATIE MANSFIELD MD BIRTHDATE: [birth year] DOS: 01/05/2018 NEPHROLOGY CONSULTATION REASON FOR CONSULTATION: Management of dialysis. The patient was seen on hemodialysis. HISTORY OF PRESENT ILLNESS: The patient is an 87-year-old female. She is known to our practice. She has a history of end-stage renal disease and undergoes dialysis Sunday, , and Sunday. She has a tunneled dialysis catheter. She presented to the hospital yesterday following a fall. Apparently, she hit her head when she fell and complained of right hip pain and right knee pain. The patient lives alone. She activated her Life Alert for EMS transport. The patient had a CT that was negative for any acute findings. Hip x-ray showed no fracture. She was admitted for further care. The patient denies shortness of breath, fevers, or chills. She was in a little bit of pain she states, but is doing okay. She was started on dialysis by orders placed by my partner yesterday. ALLERGIES: Listed to IODINE. HOME MEDICATIONS: Included amlodipine, aspirin, vitamin D, Sensipar, clonidine, labetalol, losartan, minoxidil, omeprazole, Pravachol, Evista, ramipril, [place]-Hang. PAST MEDICAL HISTORY: 1. End-stage renal disease, on hemodialysis. 2. Coronary artery disease. 3. CHF. 4. Hyperlipidemia. 5. Hypertension. 6. Anemia. 7. Vitamin D deficiency. 8. Cardiac catheterization. 9. Cholecystectomy. 10. Hip surgery. 11. Vertebroplasty. 12. Tonsillectomy. 13. Tertiary hyperparathyroidism. 14. History of upper extremity AV fistula that is nonfunctional. FAMILY HISTORY: There are no reports of chronic kidney disease, otherwise noncontributory. She apparently was adopted. SOCIAL HISTORY: No tobacco, alcohol, or illicit drugs. REVIEW OF SYSTEMS: As per HPI, otherwise, 10-point review of systems was reviewed and was negative. PHYSICAL EXAMINATION: [place], [place] REPORT OF CONSULTATION NAME: GEORGINA ANDERSON UNIT #: [id number] ROOM: 426 DOCTOR: KATIE MANSFIELD MD BIRTHDATE: [birth year] VITAL SIGNS: Temperature 98.3, pulse 73, respiration rate 18, blood pressure 139/64. GENERAL: She is awake, alert, seen on dialysis, in no acute distress. HEENT: Shows no JVD. Sclerae are anicteric. Mucous membranes appeared somewhat dry. Pharynx is clear. NECK: Supple. Trachea is midline. No neck lymphadenopathy or thyromegaly. LUNGS: Diminished breath sounds with no wheezes. No tactile fremitus. She is not using accessory muscles of respiration. HEART: S1, S2. No rub, thrill, or gallop. ABDOMEN: Soft, nontender. There is no organomegaly or rigidity, rebound, or guarding. There is no CVA tenderness. EXTREMITIES: No edema. There is no lower extremity lymphadenopathy. Distal pulses are 2+. SKIN: Showed overt rash. There is no petechia or purpura. Skin temperature is warm. NEUROLOGIC: She is awake, alert, and following commands. Cranial nerves intact. LABORATORY DATA: Hemoglobin 9.2, white count of 5.9, platelets of 180. BUN 47, creatinine 3.9, sodium 130, potassium 4.3, CO2 of 23, calcium 7.8, phosphorus 3.4, magnesium 1.9, albumin 2.8. history of upper extremity AV fistula that is nonfunctional. ASSESSMENT: 1. End-stage renal disease, on hemodialysis Sunday, , and Sunday through a tunneled dialysis catheter. 2. Status post fall with apparent hip contusion. 3. Anemia of chronic disease. 4. Tertiary hyperparathyroidism. 5. Hypertension. 6. Coronary artery disease. PLAN: 1. Continue dialysis as per schedule. The patient does not appear to be volume overloaded. We will decrease her fluid removal goal today. 2. Continue regular meds. Dose meds for end-stage renal disease. 3. Continue supportive care. Maximize nutrition. Thank you for this consultation. We will follow with you. [place], [place] REPORT OF CONSULTATION NAME: GEORGINA ANDERSON UNIT #: [id number] ROOM: 426 DOCTOR: KATIE MANSFIELD MD BIRTHDATE: [birth year] KATIE MANSFIELD MD CM:CONSTR:REPORT OF CONSULTATION 1431 02/06/18 0903 interface
[2018-01-04 06:59] VITALS: BP 183/59
[2018-01-04 10:13] LABS: BASO % 0.2 % (0.0-1.0); EOS % 0.3 % (1.0-4.0); HEMATOCRIT 33.4 % (37.0-47.0); HEMOGLOBIN 10.5 g/dl (12.0-16.0); LYMPH # 1.1 10*3/uL (1.3-4.4); LYMPH % 8.2 % (27.0-41.0); MEAN CELL VOLUME 90.8 fl (81.0-99.0); MEAN CORPUSCULAR HGB 28.5 pg (27.0-31.0); MEAN CORPUSCULAR HGB CONC 31.4 g/dl (33.0-37.0); MEAN PLATELET VOLUME 9.7 fl (9.6-12.3); MONO # 0.8 10*3/uL (0.1-1.0); MONO % 6.3 % (3.0-9.0); NEUT # 11.2 10*3/uL (2.3-7.9); NEUT % 84.3 % (47.0-73.0); PLATELET COUNT AUTOMATED 191 10*3/uL (130-400); RED BLOOD COUNT 3.68 10*6/uL (4.10-5.10); RED CELL DISTRI WIDTH 15.3 % (0-14.5); WHITE BLOOD COUNT 13.2 10*3/uL (4.8-10.8)
[2018-01-04 10:27] LABS: ALBUMIN 3.4 gm/dl (3.1-4.5); CREATININE 2.8 mg/dL (0.55-1.02); POTASSIUM 3.9 mmol/L (3.5-5.1); TOTAL PROTEIN 7.7 gm/dL (6.4-8.2)
[2018-01-04 11:30] VITALS: BP 159/55
[2018-01-04 12:27] VITALS: BP 164/53
[2018-01-04] MEDS ORDERED: CATAPRES-TTS 30.3 MG T (12:52)
[2018-01-04 12:55] VITALS: BP 177/75
[2018-01-04 16:00] VITALS: BP 138/61
[2018-01-04 20:00] VITALS: BP 116/48; BP 116/84
[2018-01-05] VITALS: BP 113/39
[2018-01-05 06:16] VITALS: BP 150/48
[2018-01-05 06:49] LABS: BASO % 0.3 % (0.0-1.0); EOS # 0.1 10*3/uL (0.0-0.4); EOS % 1.2 % (1.0-4.0); HEMATOCRIT 28.4 % (37.0-47.0); HEMOGLOBIN 9.2 g/dl (12.0-16.0); LYMPH # 0.9 10*3/uL (1.3-4.4); LYMPH % 15.2 % (27.0-41.0); MEAN CELL VOLUME 88.2 fl (81.0-99.0); MEAN CORPUSCULAR HGB 28.6 pg (27.0-31.0); MEAN CORPUSCULAR HGB CONC 32.4 g/dl (33.0-37.0); MEAN PLATELET VOLUME 10.5 fl (9.6-12.3); MONO % 17.5 % (3.0-9.0); NEUT # 3.9 10*3/uL (2.3-7.9); NEUT % 65.3 % (47.0-73.0); PLATELET COUNT AUTOMATED 180 10*3/uL (130-400); RED BLOOD COUNT 3.22 10*6/uL (4.10-5.10); RED CELL DISTRI WIDTH 15.4 % (0-14.5); WHITE BLOOD COUNT 5.9 10*3/uL (4.8-10.8)
[2018-01-05 07:04] LABS: ALBUMIN 2.8 gm/dl (3.1-4.5); CREATININE 3.91 mg/dL (0.55-1.02); FREE T4 0.98 ng/dl (0.76-1.46); PHOSPHOROUS 3.4 mg/dL (2.5-4.9); POTASSIUM 4.3 mmol/L (3.5-5.1); TOTAL PROTEIN 6.6 gm/dL (6.4-8.2)
[2018-01-05 07:09] LABS: THYROID STIM HORMONE (HS) 1.38 uIU/ml (0.358-4.75)
[2018-01-05 08:00] VITALS: BP 157/44
[2018-01-05 12:00] VITALS: BP 139/64
[2018-01-05 20:00] VITALS: BP 129/79; BP 134/52
[2018-01-06] VITALS: BP 141/63
[2018-01-06 07:15] LABS: BASO % 0.3 % (0.0-1.0); EOS # 0.1 10*3/uL (0.0-0.4); EOS % 0.9 % (1.0-4.0); HEMATOCRIT 31.4 % (37.0-47.0); LYMPH # 0.7 10*3/uL (1.3-4.4); LYMPH % 12.5 % (27.0-41.0); MEAN CELL VOLUME 90.5 fl (81.0-99.0); MEAN CORPUSCULAR HGB 28.8 pg (27.0-31.0); MEAN CORPUSCULAR HGB CONC 31.8 g/dl (33.0-37.0); MEAN PLATELET VOLUME 10.6 fl (9.6-12.3); MONO # 1.1 10*3/uL (0.1-1.0); MONO % 18.4 % (3.0-9.0); NEUT % 67.7 % (47.0-73.0); PLATELET COUNT AUTOMATED 178 10*3/uL (130-400); RED BLOOD COUNT 3.47 10*6/uL (4.10-5.10); RED CELL DISTRI WIDTH 15.3 % (0-14.5); WHITE BLOOD COUNT 5.8 10*3/uL (4.8-10.8)
[2018-01-06 07:41] LABS: CREATININE 2.68 mg/dL (0.55-1.02); POTASSIUM 3.8 mmol/L (3.5-5.1)
[2018-01-06 08:34] VITALS: BP 133/51
[2018-01-06 12:00] VITALS: BP 162/94
[2018-01-06 16:00] VITALS: BP 133/52
[2018-01-06 20:00] VITALS: BP 143/44
[2018-01-07] VITALS: BP 105/66
[2018-01-07 06:07] LABS: EOS % 0.1 % (1.0-4.0); HEMATOCRIT 27.8 % (37.0-47.0); HEMOGLOBIN 8.9 g/dl (12.0-16.0); LYMPH # 0.5 10*3/uL (1.3-4.4); LYMPH % 6.4 % (27.0-41.0); MEAN CELL VOLUME 87.7 fl (81.0-99.0); MEAN CORPUSCULAR HGB 28.1 pg (27.0-31.0); MONO # 1.1 10*3/uL (0.1-1.0); MONO % 14.7 % (3.0-9.0); NEUT # 5.9 10*3/uL (2.3-7.9); NEUT % 78.4 % (47.0-73.0); PLATELET COUNT AUTOMATED 169 10*3/uL (130-400); RED BLOOD COUNT 3.17 10*6/uL (4.10-5.10); RED CELL DISTRI WIDTH 14.9 % (0-14.5); WHITE BLOOD COUNT 7.6 10*3/uL (4.8-10.8)
[2018-01-07 06:10] LABS: CREATININE 3.98 mg/dL (0.55-1.02)
[2018-01-07 06:15] LABS: POTASSIUM 5.5 mmol/L (3.5-5.1)
[2018-01-07 08:00] VITALS: BP 164/50
[2018-01-07 12:00] VITALS: BP 162/56
[2018-01-07 16:00] VITALS: BP 123/43
[2018-01-07 20:00] VITALS: BP 131/44
[2018-01-08] VITALS: BP 120/75
[2018-01-08 05:15] VITALS: BP 143/50
[2018-01-08 06:43] LABS: EOS % 0.1 % (1.0-4.0); HEMATOCRIT 26.4 % (37.0-47.0); HEMOGLOBIN 8.8 g/dl (12.0-16.0); LYMPH # 0.5 10*3/uL (1.3-4.4); LYMPH % 7.2 % (27.0-41.0); MEAN CELL VOLUME 87.4 fl (81.0-99.0); MEAN CORPUSCULAR HGB 29.1 pg (27.0-31.0); MEAN CORPUSCULAR HGB CONC 33.3 g/dl (33.0-37.0); MEAN PLATELET VOLUME 9.5 fl (9.6-12.3); MONO # 0.8 10*3/uL (0.1-1.0); NEUT # 5.7 10*3/uL (2.3-7.9); NEUT % 81.4 % (47.0-73.0); PLATELET COUNT AUTOMATED 141 10*3/uL (130-400); RED BLOOD COUNT 3.02 10*6/uL (4.10-5.10); RED CELL DISTRI WIDTH 14.6 % (0-14.5)
[2018-01-08 06:52] LABS: ALBUMIN 2.8 gm/dl (3.1-4.5); CREATININE 5.22 mg/dL (0.55-1.02); PHOSPHOROUS 5.4 mg/dL (2.5-4.9); POTASSIUM 5.7 mmol/L (3.5-5.1)
[2018-01-08 08:00] VITALS: BP 120/50
[2018-01-08 16:00] VITALS: BP 155/72; BP 167/48
[2018-01-08 20:00] VITALS: BP 118/0
[2018-01-08 21:10] VITALS: BP 118/0
[2018-01-09] VITALS (7 sets, daily range): BP systolic 120–189; BP diastolic 41–81
[2018-01-10] VITALS: BP 145/52
[2018-01-10 06:57] LABS: CREATININE 3.94 mg/dL (0.55-1.02); PHOSPHOROUS 5.3 mg/dL (2.5-4.9); POTASSIUM 4.8 mmol/L (3.5-5.1)
[2018-01-10 08:00] VITALS: BP 176/50
[2018-01-10 16:00] VITALS: BP 184/43
[2018-01-10 20:00] VITALS: BP 130/39
[2018-01-11] VITALS: BP 145/43
[2018-01-11 04:00] VITALS: BP 192/53
[2018-01-11 07:46] LABS: BASO % 0.2 % (0.0-1.0); HEMATOCRIT 26.9 % (37.0-47.0); HEMOGLOBIN 8.4 g/dl (12.0-16.0); LYMPH # 0.5 10*3/uL (1.3-4.4); LYMPH % 7.5 % (27.0-41.0); MEAN CELL VOLUME 90.3 fl (81.0-99.0); MEAN CORPUSCULAR HGB 28.2 pg (27.0-31.0); MEAN CORPUSCULAR HGB CONC 31.2 g/dl (33.0-37.0); MEAN PLATELET VOLUME 10.8 fl (9.6-12.3); MONO # 0.9 10*3/uL (0.1-1.0); MONO % 14.2 % (3.0-9.0); NEUT # 4.8 10*3/uL (2.3-7.9); NEUT % 77.8 % (47.0-73.0); PLATELET COUNT AUTOMATED 185 10*3/uL (130-400); RED BLOOD COUNT 2.98 10*6/uL (4.10-5.10); RED CELL DISTRI WIDTH 14.6 % (0-14.5); WHITE BLOOD COUNT 6.1 10*3/uL (4.8-10.8)
[2018-01-11 08:00] VITALS: BP 163/52
[2018-01-11 08:13] LABS: CREATININE 2.2 mg/dL (0.55-1.02)
[2018-01-11 12:00] VITALS: BP 154/50
[2018-01-11] MEDS ORDERED: PREDNISONE10 MG PO (14:14)
[2018-01-11] MEDS ORDERED: NORCO 5-325 TA1 EACH PO (14:17)
[2018-02-18] MEDS ORDERED: DULCOLAX10 M1 R (01:53)
[2018-02-18] MEDS ORDERED: ZOFRAN4 MG PO (04:44)
[2018-02-25] MEDS ORDERED: DOXYCYCLINE MO100 M1 PO (10:50)
[2018-02-25] MEDS ORDERED: NORCO 5-325 TA1 EACH PO (10:51)
== END 2018-01-11 17:12 | disposition other institution (70) | DRG 604 ==
LOC: ED 06:58 → EDHOLD 11:55 → 4E 11:55 → 5E 12:12 → 4E 12:32
PROVIDERS: Family Medicine; Internal Medicine; Internal Medicine Nephrology; Registered Nurse
PROC: 5A1D70Z Performance of Urinary Filtration, Intermittent, Less than 6 Hours Per Day (ICD-10-PCS; principal; 2018-01-10)
DX: S70.01XA Contusion of right hip, initial encounter (principal); N18.6 End stage renal disease; I13.2 Hypertensive heart and chronic kidney disease with heart failure and with stage 5 chronic kidney disease, or end stage renal disease; I95.9 Hypotension, unspecified; E87.1 Hypo-osmolality and hyponatremia; I50.9 Heart failure, unspecified; D63.8 Anemia in other chronic diseases classified elsewhere; S00.93XA Contusion of unspecified part of head, initial encounter; E21.3 Hyperparathyroidism, unspecified; E55.9 Vitamin D deficiency, unspecified; R26.2 Difficulty in walking, not elsewhere classified; E78.5 Hyperlipidemia, unspecified; R00.1 Bradycardia, unspecified; I73.9 Peripheral vascular disease, unspecified; K21.9 Gastro-esophageal reflux disease without esophagitis; E78.00 Pure hypercholesterolemia, unspecified; G43.909 Migraine, unspecified, not intractable, without status migrainosus; Z96.641 Presence of right artificial hip joint; I25.10 Atherosclerotic heart disease of native coronary artery without angina pectoris; W18.39XA Other fall on same level, initial encounter; M81.0 Age-related osteoporosis without current pathological fracture; Z91.041 Radiographic dye allergy status; Z79.899 Other long term (current) drug therapy; Z99.2 Dependence on renal dialysis; Z79.82 Long term (current) use of aspirin; Z90.49 Acquired absence of other specified parts of digestive tract; Z98.51 Tubal ligation status; Z90.710 Acquired absence of both cervix and uterus; Z82.49 Family history of ischemic heart disease and other diseases of the circulatory system; Y93.89 Activity, other specified; Y92.89 Other specified places as the place of occurrence of the external cause; Y99.8 Other external cause status

== ENCOUNTER 2018-02-07 23:55 | Emergency (ER) | payer MEDICARE ==
[~2018-02-07] VITALS: Ht 160 cm; Wt 40.8 kg
[~2018-02-07 23:55] MED LIST changes: +CATAPRES-TTS 30.3 MG T
[2018-02-08 02:37] VITALS: BP 150/51
[2018-02-08] MEDS ORDERED: ULTRAM50 MG PO (02:53)
[2018-02-18] MEDS ORDERED: DULCOLAX10 M1 R (01:53)
[2018-02-18] MEDS ORDERED: ZOFRAN4 MG PO (04:44)
[2018-02-25] MEDS ORDERED: DOXYCYCLINE MO100 M1 PO (10:50)
[2018-02-25] MEDS ORDERED: NORCO 5-325 TA1 EACH PO (10:51)
== END 2018-02-08 03:03 | disposition other institution (70) ==
LOC: ED 23:55
DX: S70.02XA Contusion of left hip, initial encounter (principal); M85.88 Other specified disorders of bone density and structure, other site; I13.2 Hypertensive heart and chronic kidney disease with heart failure and with stage 5 chronic kidney disease, or end stage renal disease; N18.6 End stage renal disease; I50.9 Heart failure, unspecified; E78.00 Pure hypercholesterolemia, unspecified; G43.909 Migraine, unspecified, not intractable, without status migrainosus; R60.0 Localized edema; Z90.49 Acquired absence of other specified parts of digestive tract; Z98.890 Other specified postprocedural states; Z98.51 Tubal ligation status; Z99.2 Dependence on renal dialysis; Z90.710 Acquired absence of both cervix and uterus; Z79.82 Long term (current) use of aspirin; Z79.899 Other long term (current) drug therapy; W19.XXXA Unspecified fall, initial encounter; Y93.89 Activity, other specified; Y92.099 Unspecified place in other non-institutional residence as the place of occurrence of the external cause; Y99.9 Unspecified external cause status

== ENCOUNTER 2018-05-16 23:31 | Emergency (ER) | payer MEDICARE ==
[~2018-05-16] VITALS: Ht 157.4 cm; Wt 46.3 kg
[~2018-05-16 23:31] MED LIST changes: +DOXYCYCLINE MO100 M1 PO; +DULCOLAX10 M1 R; +ULTRAM50 MG PO; +ZOFRAN4 MG PO
[2018-05-17 01:33] VITALS: BP 122/44
== END 2018-05-17 01:58 | disposition home or self-care (01) ==
LOC: ED 23:31
DX: T82.838A Hemorrhage due to vascular prosthetic devices, implants and grafts, initial encounter (principal); I13.2 Hypertensive heart and chronic kidney disease with heart failure and with stage 5 chronic kidney disease, or end stage renal disease; N18.6 End stage renal disease; I50.9 Heart failure, unspecified; I25.10 Atherosclerotic heart disease of native coronary artery without angina pectoris; K21.9 Gastro-esophageal reflux disease without esophagitis; E78.5 Hyperlipidemia, unspecified; E78.00 Pure hypercholesterolemia, unspecified; G43.909 Migraine, unspecified, not intractable, without status migrainosus; M81.0 Age-related osteoporosis without current pathological fracture; M85.80 Other specified disorders of bone density and structure, unspecified site; Z99.2 Dependence on renal dialysis; Z79.899 Other long term (current) drug therapy; Z79.82 Long term (current) use of aspirin

== ENCOUNTER 2018-05-17 16:54 | Emergency (ER) | payer MEDICARE ==
[~2018-05-17] VITALS: Wt 43.1 kg
[2018-05-17 18:42] VITALS: BP 110/37
[2018-05-17 18:42] LABS: ACT PARTIAL THROMBO TIME 25.7 SECONDS (20.8-31.5)
[2018-05-17 18:48] LABS: ALBUMIN 2.7 gm/dl (3.1-4.5); ALKALINE PHOSPHATASE 82 U/L (45-117); BUN 49 mg/dl (7-24); CHLORIDE 95 mmol/L (98-107); CREATININE 4.62 mg/dL (0.55-1.02); SGOT/AST 17 IU/L (3-35); SODIUM 130 mmol/L (136-145); TOTAL PROTEIN 6.9 gm/dL (6.4-8.2)
[2018-05-17 18:50] LABS: SGPT/ALT < 6 U/L (12-78)
[2018-05-17 18:57] LABS: BASO % 0.3 % (0.0-1.0); EOS # 0.1 10*3/uL (0.0-0.4); HEMOGLOBIN 9.6 g/dl (12.0-16.0); LYMPH # 0.9 10*3/uL (1.3-4.4); MEAN CELL VOLUME 87.2 fl (81.0-99.0); MEAN CORPUSCULAR HGB 27.9 pg (27.0-31.0); MEAN PLATELET VOLUME 9.8 fl (9.6-12.3); MONO % 15.2 % (3.0-9.0); NEUT # 4.7 10*3/uL (2.3-7.9); NEUT % 70.4 % (47.0-73.0); PLATELET COUNT AUTOMATED 182 10*3/uL (130-400); RED BLOOD COUNT 3.44 10*6/uL (4.10-5.10); RED CELL DISTRI WIDTH 16.7 % (0-14.5); WHITE BLOOD COUNT 6.7 10*3/uL (4.8-10.8)
== END 2018-05-17 19:55 | disposition home or self-care (01) ==
LOC: ED 16:54
PROVIDERS: Physician Assistant
DX: T82.898A Other specified complication of vascular prosthetic devices, implants and grafts, initial encounter (principal); E87.5 Hyperkalemia; R79.1 Abnormal coagulation profile; Z79.899 Other long term (current) drug therapy; Z79.82 Long term (current) use of aspirin

== ENCOUNTER 2018-06-09 09:22 | Inpatient (IN) | payer MEDICARE ==
[~2018-06-09] VITALS: Ht 152.4 cm; Wt 44.6 kg
--- NOTE | ~2018-06-09 | EKG ---
[place], [place] ELECTROCARDIOGRAM REPORT NAME: GEORGINA ANDEROSN UNIT #: [id number] ROOM: 424 DOCTOR: ALLYN DRAFT REPORT BIRTHDATE: [birth year] [facility] Test Date: 2018-06-09 Test Time: 09:55:22 Pat Name: GEORGINA ANDERSON Department: Room: 424 Gender: F [employer] Manager: RICKY : 1930 Requested By: TRISTAN MILLER Order Number: [id number] Reading MD: Omid Kwon MD Measurements Intervals [place] Rate: 80 P: -2 OR: 192 QRS: 17 QRSD: 88 T: 209 QT: 381 QTc: 440 Interpretive Statements Sinus rhythm LVH with secondary repolarization abnormality Compared to ECG 02/18/2018 08:02:06 Atrial premature complex(es) no longer present T-wave abnormality is more prominent Electronically Signed On 06-09-2018 14:32:35 PST by Omid Kwon MD CM:EKGRPT:ELECTROCARDIOGRAM REPORT [id number] 1432 TRISTAN GRUBER DRAFT REPORT TRISTAN JULIEN
--- NOTE | ~2018-06-09 | CON ---
[place], [place] REPORT OF CONSULTATION NAME: GEORGINA ANDERSON UNIT #: [id number] ROOM: 424 DOCTOR: STORMY TORRES DO BIRTHDATE: [birth year] DOS: 06/09/2018 REASON FOR CONSULTATION: End-stage renal disease. HISTORY OF PRESENT ILLNESS: The patient is pleasant 88-year-old female who has history of hypertension, peripheral vascular disease, reflux disease and coronary artery disease. She has end-stage renal disease and receives dialysis every Sunday, and Sunday at ____. Last dialysis occurring today. The patient is somewhat of a poor historian, but states in general, she tolerates her dialysis treatments well without intradialytic hypertension and cramping post-hemodialysis fatigue and intradialytic dyspnea. She had multiple admissions to this institution and was admitted here today after she was noted to be lethargic by her family after dialysis yesterday. She was quite tired as well. This apparently resolved after she took a nap last night, but today when she woke up, she was apparently feeling weak and tired once again. As such, she does not recall any of these specific complaints. There were no reports of fevers, chills, rigors, diaphoresis, anorexia, nausea, vomiting, diarrhea, chest pain, palpitations, cough or URI symptoms. In the Emergency Room, she was noted to be hemodynamically stable, but had a low grade temperature of 100.1 degrees Fahrenheit with a recheck value 1 hour later of 100.4 degrees Fahrenheit. Evaluation in the Emergency Room included blood work, which showed a white count of 22.0 and hemoglobin 9.0. There were 90% segs noted on differential. Chemistries were unremarkable in the setting of end-stage renal disease. Lactic acid level was obtained and found to be 0.9. C-reactive protein was 39.4. She was straight catheterized for urine, notes that she makes minimal amount of urine and apparently this was obtained when she was straight cathed as well, but did show too numerous to count wbc's with 4+ bacteria. Imaging was performed in the Emergency Room in the form of chest x-ray, which showed slight worsening of consolidation in the right mid to lower lung vasquez. This compared to 02/2018. She was saturating at 97% on room air. She was given Rocephin in the Emergency Room and admitted for evaluation of the consolidative changes in her right lung. Blood and urine cultures were obtained and are pending today. Since being admitted, she has defervesced with a temperature of 98.6 degrees Fahrenheit this evening, though a temperature of 99.3 degrees Fahrenheit noted at noon time. She has otherwise remained hemodynamically stable and afebrile. She has not had any additional blood work obtained since being admitted. She has already noted above describes any complaints to me at present. PAST MEDICAL HISTORY: See above. ALLERGIES: LISTED TO IODINE. CURRENT MEDICATIONS: Cinacalcet 30 mg every Sunday, Zithromax 100 mg IV x1, vitamin D 1000 IU p.o. daily, omeprazole 2.5 mg p.o. daily, Rocephin 1 gram IV daily, Catapres-TTS 3 q. week, aspirin 81 mg daily, amlodipine 10 mg daily, heparin 5000 units b.i.d., atorvastatin 10 mg daily, omeprazole 20 mg b.i.d., labetalol 300 mg t.i.d. and temazepam 15 mg at bedtime p.r.n. SOCIAL HISTORY: Resides at home. [place], [place] REPORT OF CONSULTATION NAME: GEORGINA ANDERSON UNIT #: [id number] ROOM: [facility] DOCTOR: STORMY TORRES DO BIRTHDATE: [birth year] FAMILY HISTORY: Noncontributory. REVIEW OF SYSTEMS: Please see HPI. A 10-point review of systems was performed and obtained the above noted measures, was unremarkable except as noted in the HPI. PHYSICAL EXAMINATION: VITAL SIGNS: T-max is 100.4 degrees Fahrenheit with a current temperature of 98.6 degrees Fahrenheit, pulse of 74, respiration 18 and BP 131/36. GENERAL: A thin elderly female, awake, alert, oriented to person, place and time, in no apparent distress. HEENT: Conjunctivae pink and moist. Oral mucosa is pink and moist. There is no carotid bruit, thyromegaly, adenopathy or JVD appreciated. HEART: Regular with an S3 rub. A murmur could not be appreciated. CHEST: Bronchial breath sounds with egophony noted in the right mid to lower lung vasquez. The right upper lung vasquez and the left lung vasquez are clear to auscultation and percussion. ABDOMEN: Soft, positive bowel sounds x 4, nontender without CVA tenderness. No rebound, guarding or rigidity noted. No abnormal or flank bruits appreciated. Examination is grossly nonfocal. EXTREMITIES: No clubbing or cyanosis, no edema noted. 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 There is tunneled dialysis catheter noted in the left IJ. SKIN: Warm and dry. LABORATORY DATA: From today, WBC is 22.0, hemoglobin 9.3, hematocrit 28.4, platelets 274,000, 90 segs, on differential. Sodium is 130, potassium 3.9, chloride 89, CO2 of 29, BUN 26, creatinine 2.61, glucose was 111. Mag is 1.8, calcium 7.9, albumin 2.4, corrected calcium is 9.2, total protein is 7.4, ALT is 14, AST is 25, alkaline phosphatase 99, troponin 0.7. C-reactive protein is 39.4. IMPRESSION AND PLAN: 1. End-stage renal disease. Currently, volume status appears to be satisfactory. Electrolytes were borderline. Sodium was satisfactory. 2. Anemia. Hemoglobin and hematocrit appear relatively stable from previous inpatient values, unclear how she has been as an outpatient if she is receiving intravenous iron or whether erythropoietin stimulating agent dosages. 3. Hypertension. Blood pressure is out of control. 4. Pneumonia. This appears to be healthcare-associated pneumonia noted radiographically as well as apparently clinically. She did have an elevated white count and low grade fever. She is currently on antibiotic therapy. RECOMMENDATIONS: Agree with current management. Follow examination closely. Plan on routine dialysis on 06/11/2018. Clarify higher dose of Sensipar, once the dialysis clinic opens tomorrow. Thank you for allowing me to participate in the care of the patient. [place], [place] REPORT OF CONSULTATION NAME: GEORGINA ANDERSON UNIT #: [id number] ROOM: [facility] DOCTOR: STORMY TORRES DO BIRTHDATE: [birth year] STORMY TORRES DO CM:CONSTR:REPORT OF CONSULTATION 1830 06/10/18 1538 interface
[2018-06-09 09:25] VITALS: BP 120/39
[2018-06-09 10:05] LABS: HEMATOCRIT 28.4 % (37.0-47.0); MEAN CELL VOLUME 88.2 fl (81.0-99.0); MEAN CORPUSCULAR HGB CONC 31.7 g/dl (33.0-37.0); MEAN PLATELET VOLUME 9.1 fl (9.6-12.3); PLATELET COUNT AUTOMATED 274 10*3/uL (130-400); RED BLOOD COUNT 3.22 10*6/uL (4.10-5.10); RED CELL DISTRI WIDTH 16.2 % (0-14.5)
[2018-06-09 10:15] LABS: ACT PARTIAL THROMBO TIME 33.4 SECONDS (20.8-31.5)
[2018-06-09 10:28] LABS: BILIRUBIN 1+ (NEGATIVE); BLOOD 3+ (NEGATIVE); CLARITY CLOUDY (CLEAR); COLOR YELLOW (YELLOW); GLUCOSE NEGATIVE (NEGATIVE); KETONE NEGATIVE (NEGATIVE); LEUKO ESTERASE 3+ (NEGATIVE); NITRITE NEGATIVE (NEGATIVE); UROBILINOGEN 0.2 E.U./dl (0.2-1.0)
[2018-06-09 10:29] LABS: ALBUMIN 2.4 gm/dl (3.1-4.5); CREATININE 2.61 mg/dL (0.55-1.02); PLATELET SUFFICIENCY NORMAL (NORMAL); POTASSIUM 3.9 mmol/L (3.5-5.1); TOTAL CELLS COUNTED 100 #CELLS; TOTAL PROTEIN 7.4 gm/dL (6.4-8.2); TOXIC GRANULATION SLIGHT; TROPONIN I 0.028 ng/ml (<0.045)
[2018-06-09 10:38] LABS: BACTERIA 4+; RBC 41-50 rbc/hpf (0-2); WBC TNTC wbc/hpf (0-5)
[2018-06-09 11:46] VITALS: BP 126/50
[2018-06-09 12:14] VITALS: BP 112/36
[2018-06-09 12:15] VITALS: BP 112/36
[2018-06-09 16:00] VITALS: BP 131/36
[2018-06-09 20:00] VITALS: BP 144/42
[2018-06-10] VITALS (7 sets, daily range): BP systolic 114–142; BP diastolic 39–58
[2018-06-10 06:08] LABS: BASO % 0.2 % (0.0-1.0); EOS % 0.1 % (1.0-4.0); HEMATOCRIT 27.1 % (37.0-47.0); HEMOGLOBIN 8.5 g/dl (12.0-16.0); LYMPH # 0.9 10*3/uL (1.3-4.4); LYMPH % 4.3 % (27.0-41.0); MEAN CELL VOLUME 86.6 fl (81.0-99.0); MEAN CORPUSCULAR HGB 27.2 pg (27.0-31.0); MEAN CORPUSCULAR HGB CONC 31.4 g/dl (33.0-37.0); MEAN PLATELET VOLUME 10.4 fl (9.6-12.3); MONO # 1.5 10*3/uL (0.1-1.0); MONO % 7.1 % (3.0-9.0); NEUT # 18.4 10*3/uL (2.3-7.9); NEUT % 87.2 % (47.0-73.0); PLATELET COUNT AUTOMATED 316 10*3/uL (130-400); RED BLOOD COUNT 3.13 10*6/uL (4.10-5.10); RED CELL DISTRI WIDTH 16.3 % (0-14.5); WHITE BLOOD COUNT 21.1 10*3/uL (4.8-10.8)
[2018-06-10 06:39] LABS: CREATININE 3.69 mg/dL (0.55-1.02); PHOSPHOROUS 2.9 mg/dL (2.5-4.9)
[2018-06-10 06:45] LABS: FREE T4 1.14 ng/dl (0.76-1.46); THYROID STIM HORMONE (HS) 1.29 uIU/ml (0.358-4.75); TOTAL PROTEIN 6.7 gm/dL (6.4-8.2)
[2018-06-10 07:12] LABS: VITAMIN D, 25-HYDROXY 40.9 ng/mL (30-100)
[2018-06-11] VITALS: BP 129/38
[2018-06-11 05:28] VITALS: BP 130/53
[2018-06-11 06:39] LABS: BASO % 0.2 % (0.0-1.0); EOS # 0.1 10*3/uL (0.0-0.4); EOS % 0.9 % (1.0-4.0); HEMATOCRIT 26.8 % (37.0-47.0); HEMOGLOBIN 8.4 g/dl (12.0-16.0); LYMPH # 1.2 10*3/uL (1.3-4.4); LYMPH % 11.5 % (27.0-41.0); MEAN CELL VOLUME 85.1 fl (81.0-99.0); MEAN CORPUSCULAR HGB 26.7 pg (27.0-31.0); MEAN CORPUSCULAR HGB CONC 31.3 g/dl (33.0-37.0); MEAN PLATELET VOLUME 10.1 fl (9.6-12.3); MONO % 9.5 % (3.0-9.0); NEUT # 7.6 10*3/uL (2.3-7.9); NEUT % 75.8 % (47.0-73.0); PLATELET COUNT AUTOMATED 302 10*3/uL (130-400); RED BLOOD COUNT 3.15 10*6/uL (4.10-5.10); RED CELL DISTRI WIDTH 16.1 % (0-14.5)
[2018-06-11 07:27] LABS: CREATININE 4.6 mg/dL (0.55-1.02); POTASSIUM 5.1 mmol/L (3.5-5.1); TOTAL PROTEIN 6.7 gm/dL (6.4-8.2)
[2018-06-11 08:00] VITALS: BP 122/64
[2018-06-11 16:00] VITALS: BP 128/42
[2018-06-11 20:00] VITALS: BP 126/50; BP 157/51
[2018-06-12] VITALS: BP 150/90
[2018-06-12 06:42] LABS: HEMATOCRIT 28.2 % (37.0-47.0); HEMOGLOBIN 8.7 g/dl (12.0-16.0); MEAN CELL VOLUME 86.8 fl (81.0-99.0); MEAN CORPUSCULAR HGB 26.8 pg (27.0-31.0); MEAN CORPUSCULAR HGB CONC 30.9 g/dl (33.0-37.0); MEAN PLATELET VOLUME 10.1 fl (9.6-12.3); PLATELET COUNT AUTOMATED 316 10*3/uL (130-400); RED BLOOD COUNT 3.25 10*6/uL (4.10-5.10); RED CELL DISTRI WIDTH 16.2 % (0-14.5); WHITE BLOOD COUNT 7.8 10*3/uL (4.8-10.8)
[2018-06-12 07:06] LABS: CREATININE 2.77 mg/dL (0.55-1.02); TOTAL PROTEIN 6.9 gm/dL (6.4-8.2)
[2018-06-12 07:07] LABS: BASOPHILS 1 % (0-1); PLATELET SUFFICIENCY NORMAL (NORMAL); POLYCHROMASIA SLIGHT; POTASSIUM 3.7 mmol/L (3.5-5.1); TOTAL CELLS COUNTED 100 #CELLS
[2018-06-12 08:00] VITALS: BP 136/68
[2018-06-12 12:00] VITALS: BP 153/59
[2018-06-12] MEDS ORDERED: VIBRAMYCIN100 MG PO (13:33)
== END 2018-06-12 15:21 | disposition home or self-care (01) | DRG 177 ==
LOC: ED 09:22 → 4E 11:41 → EDHOLD 11:41 → 4E 11:50
PROVIDERS: Family Medicine; Internal Medicine; Physician Assistant
PROC: 5A1D70Z Performance of Urinary Filtration, Intermittent, Less than 6 Hours Per Day (ICD-10-PCS; principal; 2018-06-11)
DX: J15.6 Pneumonia due to other Gram-negative bacteria (principal); E43 Unspecified severe protein-calorie malnutrition; N18.6 End stage renal disease; N39.0 Urinary tract infection, site not specified; E87.1 Hypo-osmolality and hyponatremia; I13.2 Hypertensive heart and chronic kidney disease with heart failure and with stage 5 chronic kidney disease, or end stage renal disease; Z68.1 Body mass index [BMI] 19.9 or less, adult; E87.8 Other disorders of electrolyte and fluid balance, not elsewhere classified; E55.9 Vitamin D deficiency, unspecified; M81.0 Age-related osteoporosis without current pathological fracture; G43.909 Migraine, unspecified, not intractable, without status migrainosus; E78.00 Pure hypercholesterolemia, unspecified; D64.9 Anemia, unspecified; I25.10 Atherosclerotic heart disease of native coronary artery without angina pectoris; I73.9 Peripheral vascular disease, unspecified; K21.9 Gastro-esophageal reflux disease without esophagitis; I50.9 Heart failure, unspecified; Z99.2 Dependence on renal dialysis; Z91.048 Other nonmedicinal substance allergy status; Z90.49 Acquired absence of other specified parts of digestive tract; Z98.51 Tubal ligation status; Z82.49 Family history of ischemic heart disease and other diseases of the circulatory system; Z79.899 Other long term (current) drug therapy; Z79.82 Long term (current) use of aspirin

== ENCOUNTER 2019-07-09 12:59 | Emergency (ER) | payer MEDICARE ==
[~2019-07-09] VITALS: Ht 152.4 cm; Wt 44.5 kg
[~2019-07-09 12:59] MED LIST changes: +VIBRAMYCIN100 MG PO
[2019-07-09 13:08] VITALS: BP 185/63
[2019-07-09 13:57] LABS: BASO % 0.4 % (0.0-1.0); EOS # 0.1 10*3/uL (0.0-0.4); EOS % 2.5 % (1.0-4.0); HEMATOCRIT 30.7 % (37.0-47.0); HEMOGLOBIN 9.5 g/dl (12.0-16.0); LYMPH # 0.7 10*3/uL (1.3-4.4); LYMPH % 14.5 % (27.0-41.0); MEAN CELL VOLUME 85.5 fl (81.0-99.0); MEAN CORPUSCULAR HGB 26.5 pg (27.0-31.0); MEAN CORPUSCULAR HGB CONC 30.9 g/dl (33.0-37.0); MEAN PLATELET VOLUME 7.7 fl (9.6-12.3); MONO # 0.8 10*3/uL (0.1-1.0); MONO % 15.9 % (3.0-9.0); NEUT # 3.4 10*3/uL (2.3-7.9); NEUT % 66.5 % (47.0-73.0); PLATELET COUNT AUTOMATED 110 10*3/uL (130-400); RED BLOOD COUNT 3.59 10*6/uL (4.10-5.10); RED CELL DISTRI WIDTH 20.1 % (0-14.5); WHITE BLOOD COUNT 5.1 10*3/uL (4.8-10.8)
[2019-07-09 14:08] LABS: CREATININE 3.13 mg/dL (0.55-1.02); POTASSIUM 5.4 mmol/L (3.5-5.1)
== END 2019-07-09 16:15 | disposition home or self-care (01) ==
LOC: ED 12:59
PROVIDERS: Emergency Medicine
DX: S51.811A Laceration without foreign body of right forearm, initial encounter (principal); I25.10 Atherosclerotic heart disease of native coronary artery without angina pectoris; K21.9 Gastro-esophageal reflux disease without esophagitis; E78.00 Pure hypercholesterolemia, unspecified; M81.0 Age-related osteoporosis without current pathological fracture; G43.909 Migraine, unspecified, not intractable, without status migrainosus; M85.80 Other specified disorders of bone density and structure, unspecified site; I13.2 Hypertensive heart and chronic kidney disease with heart failure and with stage 5 chronic kidney disease, or end stage renal disease; N18.6 End stage renal disease; I50.9 Heart failure, unspecified; Z79.899 Other long term (current) drug therapy; Z99.2 Dependence on renal dialysis; Z79.82 Long term (current) use of aspirin; X58.XXXA Exposure to other specified factors, initial encounter; Y93.89 Activity, other specified; Y92.89 Other specified places as the place of occurrence of the external cause; Y99.8 Other external cause status

== ENCOUNTER 2019-08-24 14:17 | Emergency (ER) | payer MEDICARE ==
[~2019-08-24] VITALS: Ht 152.4 cm; Wt 42.6 kg
[2019-08-24 15:10] LABS: BASO % 0.2 % (0.0-1.0); EOS # 0.1 10*3/uL (0.0-0.4); HEMOGLOBIN 9.6 g/dl (12.0-16.0); LYMPH # 0.7 10*3/uL (1.3-4.4); LYMPH % 6.9 % (27.0-41.0); MEAN CELL VOLUME 83.8 fl (81.0-99.0); MEAN CORPUSCULAR HGB 25.1 pg (27.0-31.0); MONO # 0.9 10*3/uL (0.1-1.0); MONO % 8.6 % (3.0-9.0); NEUT # 8.9 10*3/uL (2.3-7.9); NEUT % 82.9 % (47.0-73.0); PLATELET COUNT AUTOMATED 148 10*3/uL (130-400); RED BLOOD COUNT 3.82 10*6/uL (4.10-5.10); RED CELL DISTRI WIDTH 21.1 % (0-14.5); WHITE BLOOD COUNT 10.8 10*3/uL (4.8-10.8)
[2019-08-24 15:23] LABS: ACT PARTIAL THROMBO TIME 27.8 SECONDS (20.0-32.1)
[2019-08-24 15:25] LABS: ALBUMIN 3.1 gm/dl (3.1-4.5); CREATININE 2.89 mg/dL (0.55-1.02); POTASSIUM 4.9 mmol/L (3.5-5.1); TOTAL PROTEIN 7.2 gm/dL (6.4-8.2)
[2019-08-24 17:00] VITALS: BP 179/61
== END 2019-08-24 18:30 | disposition short-term general hospital (02) ==
LOC: ED 14:17
PROVIDERS: Nurse Practitioner Family
DX: S72.142A Displaced intertrochanteric fracture of left femur, initial encounter for closed fracture (principal); I25.10 Atherosclerotic heart disease of native coronary artery without angina pectoris; K21.9 Gastro-esophageal reflux disease without esophagitis; E78.00 Pure hypercholesterolemia, unspecified; I12.0 Hypertensive chronic kidney disease with stage 5 chronic kidney disease or end stage renal disease; N18.6 End stage renal disease; M81.0 Age-related osteoporosis without current pathological fracture; G43.909 Migraine, unspecified, not intractable, without status migrainosus; I73.9 Peripheral vascular disease, unspecified; Z90.710 Acquired absence of both cervix and uterus; Z90.49 Acquired absence of other specified parts of digestive tract; Z98.890 Other specified postprocedural states; Z91.041 Radiographic dye allergy status; Z91.048 Other nonmedicinal substance allergy status; Z79.2 Long term (current) use of antibiotics; Z79.899 Other long term (current) drug therapy; Z79.82 Long term (current) use of aspirin; Z99.2 Dependence on renal dialysis; W18.09XA Striking against other object with subsequent fall, initial encounter; Y93.89 Activity, other specified; Y92.89 Other specified places as the place of occurrence of the external cause; Y99.8 Other external cause status

== ENCOUNTER 2019-09-30 15:25 | Inpatient (IN) | payer MEDICARE ==
[~2019-09-30] VITALS: Ht 152.4 cm; Wt 40.9 kg
[~2019-09-30 15:25] MED LIST changes: -OMEPRAZOLE D/R20 MG PO; +OMEPRAZOLE MAGN20 MG PO
[2019-09-30 16:32] LABS: BASO % 0.2 % (0.0-1.0); EOS % 0.3 % (1.0-4.0); HEMATOCRIT 27.5 % (37.0-47.0); HEMOGLOBIN 8.6 g/dl (12.0-16.0); LYMPH # 0.7 10*3/uL (1.3-4.4); LYMPH % 5.4 % (27.0-41.0); MEAN CELL VOLUME 83.8 fl (81.0-99.0); MEAN CORPUSCULAR HGB 26.2 pg (27.0-31.0); MEAN CORPUSCULAR HGB CONC 31.3 g/dl (33.0-37.0); MEAN PLATELET VOLUME 8.8 fl (9.6-12.3); MONO # 1.1 10*3/uL (0.1-1.0); MONO % 8.6 % (3.0-9.0); PLATELET COUNT AUTOMATED 284 10*3/uL (130-400); RED BLOOD COUNT 3.28 10*6/uL (4.10-5.10); RED CELL DISTRI WIDTH 17.9 % (0-14.5); WHITE BLOOD COUNT 12.9 10*3/uL (4.8-10.8)
[2019-09-30 16:47] LABS: ALBUMIN 2.3 gm/dl (3.1-4.5); CREATININE 1.35 mg/dL (0.55-1.02); TOTAL PROTEIN 7.1 gm/dL (6.4-8.2)
[2019-09-30] MEDS ORDERED: TOBRADEX 0.3-03.5 GM OPH (16:52)
[2019-09-30] MEDS ORDERED: DOXYCYCLINE100 M3 PO (16:53)
[2019-09-30 19:18] VITALS: BP 179/53
[2019-09-30 20:50] VITALS: BP 159/60
[2019-09-30] MEDS ORDERED: CHLORASEPTIC S177 ML MM (21:11)
[2019-09-30] MEDS ORDERED: CLARITIN10 MG PO (21:12)
[2019-09-30] MEDS ORDERED: DEEP SEA44 ML NAS (21:14)
[2019-09-30] MEDS ORDERED: DULCOLAX STOOL100 M1 PO (21:15)
[2019-09-30] MEDS ORDERED: EVISTA60 MG PO (21:16)
[2019-09-30] MEDS ORDERED: LACTULOSE20 GM/30 M PO (21:17)
[2019-09-30] MEDS ORDERED: OXYCODONE HCL5 M1 PO (21:18)
[2019-10-01] VITALS: BP 145/59
[2019-10-01 06:19] LABS: BASO % 0.3 % (0.0-1.0); EOS % 0.1 % (1.0-4.0); HEMATOCRIT 25.3 % (37.0-47.0); HEMOGLOBIN 7.8 g/dl (12.0-16.0); LYMPH # 0.7 10*3/uL (1.3-4.4); LYMPH % 4.6 % (27.0-41.0); MEAN CELL VOLUME 85.2 fl (81.0-99.0); MEAN CORPUSCULAR HGB 26.3 pg (27.0-31.0); MEAN CORPUSCULAR HGB CONC 30.8 g/dl (33.0-37.0); MEAN PLATELET VOLUME 9.8 fl (9.6-12.3); MONO # 1.3 10*3/uL (0.1-1.0); MONO % 8.5 % (3.0-9.0); NEUT # 13.3 10*3/uL (2.3-7.9); NEUT % 85.7 % (47.0-73.0); PLATELET COUNT AUTOMATED 305 10*3/uL (130-400); RED BLOOD COUNT 2.97 10*6/uL (4.10-5.10); RED CELL DISTRI WIDTH 17.7 % (0-14.5); WHITE BLOOD COUNT 15.5 10*3/uL (4.8-10.8)
[2019-10-01 06:21] LABS: ALBUMIN 2.3 gm/dl (3.1-4.5); CREATININE 2.07 mg/dL (0.55-1.02); PHOSPHOROUS 2.3 mg/dL (2.5-4.9); TOTAL PROTEIN 6.8 gm/dL (6.4-8.2)
[2019-10-01 08:00] VITALS: BP 148/56
[2019-10-01 08:43] LABS: INTERNATIONAL NORM RATIO 1.1 (2.0-3.5)
[2019-10-01 12:00] VITALS: BP 133/48
[2019-10-01 16:00] VITALS: BP 132/46
[2019-10-01 20:00] VITALS: BP 116/60
[2019-10-02] VITALS: BP 109/42
[2019-10-02 04:00] VITALS: BP 109/42
[2019-10-02 06:06] LABS: BASO % 0.3 % (0.0-1.0); EOS # 0.1 10*3/uL (0.0-0.4); EOS % 0.7 % (1.0-4.0); HEMATOCRIT 24.4 % (37.0-47.0); HEMOGLOBIN 7.7 g/dl (12.0-16.0); LYMPH # 0.8 10*3/uL (1.3-4.4); LYMPH % 7.1 % (27.0-41.0); MEAN CORPUSCULAR HGB 26.4 pg (27.0-31.0); MEAN CORPUSCULAR HGB CONC 31.6 g/dl (33.0-37.0); MEAN PLATELET VOLUME 9.5 fl (9.6-12.3); MONO # 1.1 10*3/uL (0.1-1.0); MONO % 8.8 % (3.0-9.0); NEUT # 9.8 10*3/uL (2.3-7.9); NEUT % 82.5 % (47.0-73.0); PLATELET COUNT AUTOMATED 321 10*3/uL (130-400); RED BLOOD COUNT 2.92 10*6/uL (4.10-5.10); RED CELL DISTRI WIDTH 17.7 % (0-14.5); WHITE BLOOD COUNT 11.9 10*3/uL (4.8-10.8)
[2019-10-02 06:14] LABS: ALBUMIN 2.2 gm/dl (3.1-4.5); CREATININE 2.91 mg/dL (0.55-1.02); PHOSPHOROUS 2.3 mg/dL (2.5-4.9); POTASSIUM 3.6 mmol/L (3.5-5.1); TOTAL PROTEIN 6.7 gm/dL (6.4-8.2)
[2019-10-02 06:32] LABS: MEAN CELL VOLUME 83.6 fl (81.0-99.0)
[2019-10-02 08:00] VITALS: BP 133/47
[2019-10-02 12:00] VITALS: BP 117/48
[2019-10-02 16:00] VITALS: BP 133/52
[2019-10-02 20:00] VITALS: BP 120/48
[2019-10-03] VITALS: BP 93/47
[2019-10-03 06:21] LABS: BASO % 0.3 % (0.0-1.0); EOS # 0.1 10*3/uL (0.0-0.4); EOS % 0.9 % (1.0-4.0); HEMATOCRIT 23.4 % (37.0-47.0); HEMOGLOBIN 7.4 g/dl (12.0-16.0); LYMPH # 1.1 10*3/uL (1.3-4.4); LYMPH % 9.2 % (27.0-41.0); MEAN CELL VOLUME 81.3 fl (81.0-99.0); MEAN CORPUSCULAR HGB 25.7 pg (27.0-31.0); MEAN CORPUSCULAR HGB CONC 31.6 g/dl (33.0-37.0); MEAN PLATELET VOLUME 9.3 fl (9.6-12.3); MONO % 8.9 % (3.0-9.0); NEUT # 9.1 10*3/uL (2.3-7.9); PLATELET COUNT AUTOMATED 303 10*3/uL (130-400); RED BLOOD COUNT 2.88 10*6/uL (4.10-5.10); RED CELL DISTRI WIDTH 17.6 % (0-14.5); WHITE BLOOD COUNT 11.4 10*3/uL (4.8-10.8)
[2019-10-03 06:32] LABS: CREATININE 3.63 mg/dL (0.55-1.02); PHOSPHOROUS 2.9 mg/dL (2.5-4.9); POTASSIUM 4.4 mmol/L (3.5-5.1); TOTAL PROTEIN 6.7 gm/dL (6.4-8.2)
[2019-10-03 08:00] VITALS: BP 139/59
[2019-10-03] MEDS ORDERED: [UNRECOGNIZED DRUG - CODE] PO (13:01)
[2019-10-03 16:00] VITALS: BP 145/55
== END 2019-10-03 17:29 | disposition other institution (70) | DRG 193 ==
LOC: ED 15:25 → EDHOLD 18:07 → 5E 18:07 → 4E 10-03 15:02
PROVIDERS: Family Medicine; Internal Medicine; Nurse Practitioner Family; ADMIT Internal Medicine
PROC: 5A1D70Z Performance of Urinary Filtration, Intermittent, Less than 6 Hours Per Day (ICD-10-PCS; principal; 2019-09-30)
PROC: 5A1D70Z Performance of Urinary Filtration, Intermittent, Less than 6 Hours Per Day (ICD-10-PCS; 2019-10-03)
DX: J18.9 Pneumonia, unspecified organism (principal); N18.6 End stage renal disease; E43 Unspecified severe protein-calorie malnutrition; Z68.1 Body mass index [BMI] 19.9 or less, adult; I13.2 Hypertensive heart and chronic kidney disease with heart failure and with stage 5 chronic kidney disease, or end stage renal disease; E87.1 Hypo-osmolality and hyponatremia; I50.30 Unspecified diastolic (congestive) heart failure; E78.00 Pure hypercholesterolemia, unspecified; M81.0 Age-related osteoporosis without current pathological fracture; I25.10 Atherosclerotic heart disease of native coronary artery without angina pectoris; I73.9 Peripheral vascular disease, unspecified; K21.9 Gastro-esophageal reflux disease without esophagitis; M85.80 Other specified disorders of bone density and structure, unspecified site; E87.6 Hypokalemia; E16.2 Hypoglycemia, unspecified; E83.39 Other disorders of phosphorus metabolism; J32.9 Chronic sinusitis, unspecified; D64.9 Anemia, unspecified; G43.909 Migraine, unspecified, not intractable, without status migrainosus; Z91.048 Other nonmedicinal substance allergy status; Z99.2 Dependence on renal dialysis; Z88.8 Allergy status to other drugs, medicaments and biological substances; Z79.82 Long term (current) use of aspirin; Z79.899 Other long term (current) drug therapy; Z90.49 Acquired absence of other specified parts of digestive tract; Z90.710 Acquired absence of both cervix and uterus; Z82.49 Family history of ischemic heart disease and other diseases of the circulatory system

== ENCOUNTER → 2019-12-17 | Outpatient (CLI) | payer MEDICARE ==
[~2019-12-17] VITALS: Ht 152.4 cm; Wt 43.1 kg
[~2019-12-17] MED LIST changes: +CHLORASEPTIC S177 ML MM; +CLARITIN10 MG PO; +DOXYCYCLINE100 M3 PO; +DULCOLAX STOOL100 M1 PO; +LACTULOSE20 GM/30 M PO; +OXYCODONE HCL5 M1 PO; +TOBRADEX 0.3-03.5 GM OPH; +[UNRECOGNIZED DRUG - CODE] PO
[2019-12-17 10:49] VITALS: BP 179/58
== END | disposition home or self-care (01) ==
LOC: ED 10:41 → EDSTATUS 11:05 → US 11:06
DX: M79.605 Pain in left leg (principal); R60.0 Localized edema

== ENCOUNTER 2019-12-18 05:48 | Inpatient (IN) | payer MEDICARE ==
[2019-12-18] VITALS (12 sets, daily range): BP systolic 144–240; BP diastolic 50–120
[~2019-12-18] VITALS: Ht 152.4 cm; Wt 43.3 kg
[2019-12-18 06:26] LABS: BASO # 0.1 10*3/uL (0.0-0.1); BASO % 0.5 % (0.0-1.0); EOS # 0.2 10*3/uL (0.0-0.4); EOS % 1.7 % (1.0-4.0); HEMATOCRIT 27.5 % (37.0-47.0); LYMPH # 1.3 10*3/uL (1.3-4.4); LYMPH % 11.6 % (27.0-41.0); MEAN CELL VOLUME 80.4 fl (81.0-99.0); MEAN CORPUSCULAR HGB 24.6 pg (27.0-31.0); MEAN CORPUSCULAR HGB CONC 30.5 g/dl (33.0-37.0); MEAN PLATELET VOLUME 8.1 fl (9.6-12.3); MONO # 1.3 10*3/uL (0.1-1.0); MONO % 11.5 % (3.0-9.0); NEUT # 8.2 10*3/uL (2.3-7.9); NEUT % 74.5 % (47.0-73.0); PLATELET COUNT AUTOMATED 245 10*3/uL (130-400); RED BLOOD COUNT 3.42 10*6/uL (4.10-5.10); RED CELL DISTRI WIDTH 21.6 % (0-14.5)
[2019-12-18 06:37] LABS: ACT PARTIAL THROMBO TIME 28.9 SECONDS (20.0-32.1)
[2019-12-18 06:43] LABS: ALBUMIN 2.3 gm/dl (3.1-4.5); CREATININE 2.88 mg/dL (0.55-1.02); POTASSIUM 4.1 mmol/L (3.5-5.1)
[2019-12-18 06:44] LABS: TROPONIN I 0.029 ng/ml (<0.045)
[2019-12-18 10:13] LABS: ABG BASE EXCESS 6.3 mmol/L (-2.0-2.0); ARTERIAL BLOOD GAS PH 7.458 (7.35-7.45)
[2019-12-18] MEDS ORDERED: COLACE100 MG PO (11:49)
[2019-12-19] VITALS: BP 172/67
[2019-12-19 04:00] VITALS: BP 188/70
[2019-12-19 06:13] LABS: BASO % 0.4 % (0.0-1.0); EOS # 0.1 10*3/uL (0.0-0.4); EOS % 1.7 % (1.0-4.0); HEMATOCRIT 24.2 % (37.0-47.0); LYMPH # 1.1 10*3/uL (1.3-4.4); LYMPH % 13.5 % (27.0-41.0); MEAN CELL VOLUME 79.3 fl (81.0-99.0); MEAN CORPUSCULAR HGB 24.3 pg (27.0-31.0); MEAN CORPUSCULAR HGB CONC 30.6 g/dl (33.0-37.0); MEAN PLATELET VOLUME 8.3 fl (9.6-12.3); MONO % 12.1 % (3.0-9.0); NEUT % 71.9 % (47.0-73.0); PLATELET COUNT AUTOMATED 243 10*3/uL (130-400); RED BLOOD COUNT 3.05 10*6/uL (4.10-5.10); RED CELL DISTRI WIDTH 20.9 % (0-14.5); WHITE BLOOD COUNT 8.4 10*3/uL (4.8-10.8)
[2019-12-19 06:27] LABS: CREATININE 2.04 mg/dL (0.55-1.02)
[2019-12-19 06:34] LABS: THYROID STIM HORMONE (HS) 1.39 uIU/ml (0.358-4.75)
[2019-12-19 08:00] VITALS: BP 157/60
[2019-12-19 12:00] VITALS: BP 166/58
== END 2019-12-19 13:57 | DRG 189 ==
LOC: ED 05:48 → ICCU 06:46 → EDHOLD 06:46 → ICCU 07:17
PROVIDERS: Emergency Medicine; Internal Medicine; Internal Medicine Critical Care Medicine; ADMIT Internal Medicine
PROC: 5A09357 Assistance with Respiratory Ventilation, Less than 24 Consecutive Hours, Continuous Positive Airway Pressure (ICD-10-PCS; principal; 2019-12-18)
PROC: 5A1D70Z Performance of Urinary Filtration, Intermittent, Less than 6 Hours Per Day (ICD-10-PCS; principal; 2019-12-18)
DX: J96.01 Acute respiratory failure with hypoxia (principal); E43 Unspecified severe protein-calorie malnutrition; N18.6 End stage renal disease; I16.1 Hypertensive emergency; E87.1 Hypo-osmolality and hyponatremia; N17.9 Acute kidney failure, unspecified; I13.2 Hypertensive heart and chronic kidney disease with heart failure and with stage 5 chronic kidney disease, or end stage renal disease; Z68.1 Body mass index [BMI] 19.9 or less, adult; E87.70 Fluid overload, unspecified; D50.9 Iron deficiency anemia, unspecified; E78.00 Pure hypercholesterolemia, unspecified; M81.0 Age-related osteoporosis without current pathological fracture; K21.9 Gastro-esophageal reflux disease without esophagitis; E55.9 Vitamin D deficiency, unspecified; I25.10 Atherosclerotic heart disease of native coronary artery without angina pectoris; D72.829 Elevated white blood cell count, unspecified; E11.65 Type 2 diabetes mellitus with hyperglycemia; E11.22 Type 2 diabetes mellitus with diabetic chronic kidney disease; E11.51 Type 2 diabetes mellitus with diabetic peripheral angiopathy without gangrene; Z99.2 Dependence on renal dialysis; Z90.49 Acquired absence of other specified parts of digestive tract; Z90.710 Acquired absence of both cervix and uterus; Z82.49 Family history of ischemic heart disease and other diseases of the circulatory system; Z91.041 Radiographic dye allergy status; Z91.048 Other nonmedicinal substance allergy status; Z79.899 Other long term (current) drug therapy; Z79.82 Long term (current) use of aspirin

== ENCOUNTER 2019-12-27 07:34 | Inpatient (IN) | payer MEDICARE ==
[2019-12-27] VITALS (9 sets, daily range): BP systolic 158–216; BP diastolic 61–93
[~2019-12-27] VITALS: Ht 177.8 cm; Wt 39.5 kg
[2019-12-27 08:17] LABS: HEMATOCRIT 23.1 % (37.0-47.0); MEAN CELL VOLUME 79.4 fl (81.0-99.0); MEAN CORPUSCULAR HGB 23.4 pg (27.0-31.0); MEAN CORPUSCULAR HGB CONC 29.4 g/dl (33.0-37.0); MEAN PLATELET VOLUME 8.4 fl (9.6-12.3); PLATELET COUNT AUTOMATED 260 10*3/uL (130-400); RED BLOOD COUNT 2.91 10*6/uL (4.10-5.10); RED CELL DISTRI WIDTH 19.3 % (0-14.5); WHITE BLOOD COUNT 8.6 10*3/uL (4.8-10.8)
[2019-12-27 08:26] LABS: ACT PARTIAL THROMBO TIME 26.4 SECONDS (20.0-32.1)
[2019-12-27 08:34] LABS: ALBUMIN 2.1 gm/dl (3.1-4.5); ALKALINE PHOSPHATASE 70 U/L (45-117); BUN 25 mg/dl (7-24); CHLORIDE 94 mmol/L (98-107); CREATININE 2.72 mg/dL (0.55-1.02); POTASSIUM 4.8 mmol/L (3.5-5.1); SGOT/AST 20 IU/L (3-35); SGPT/ALT 13 U/L (12-78); SODIUM 131 mmol/L (136-145); TOTAL PROTEIN 7.3 gm/dL (6.4-8.2)
[2019-12-27 08:35] LABS: BASOPHILS 1 % (0-1); TOTAL CELLS COUNTED 100 #CELLS
[2019-12-27 08:36] LABS: MICROCYTOSIS MARKED; PLATELET SUFFICIENCY NORMAL (NORMAL); SCHISTOCYTES FEW
[2019-12-27 08:37] LABS: TROPONIN I < 0.015 ng/ml (<0.045)
--- NOTE | 2019-12-27 09:30 | NUR ---
PT RESTING COMFORTABLY. SON AT BEDSIDE. WILL CONTINUE TO MONITOR.
--- NOTE | 2019-12-27 10:12 | NUR ---
IV ATTEMPT UNSUCCESSFUL BY BOTH HO MANJARREZ AND MYSELF. NOTIFIED.
--- NOTE | 2019-12-27 11:11 | NUR ---
DIALYSIS CONSULT COMPLETED BY DR HOWE.
--- NOTE | 2019-12-27 11:41 | NUR ---
NURSE FROM [facility] CALLED FOR AN UPDATE. INFORMED THAT SHE IS BEING ADMITTED WITH HTN AND CHEST PAIN.
--- NOTE | 2019-12-27 12:31 | NUR ---
PT HAD PATCH THAT FELL OFF THAT WAS DATED 12/11/19. PTS SON STATES THAT HE BELIEVES THAT IT IS CLONIDINE. PT ALSO HAS ANOTHER PATCH ON RIGHT SHOULDER THAT DOES NOT HAVE A NAME ON IT. MADE AWARE.
--- NOTE | 2019-12-27 12:48 | NUR ---
CONTACTED RN. STATES THAT SHE IS STILL AT LUNCH. CONTACTING FLOOR TO SEE IF ANOTHER STAFF CAN TAKE REPORT.
--- NOTE | 2019-12-27 13:00 | NUR ---
A 89, admitted to , under the services of WESLEY Hawthorne DO with a diagnosis of HTN URGENCY, CHEST PAIN. Chief complaint is CHEST PAIN AND SOB AT [facility] PER ER STAFF. Patient arrived via stretcher from ER. Monitor applied. Initial assessment completed. Vital signs taken and recorded. See assessment for past medical history, medications and allergies. Patient and/or family oriented to unit. [facility] visitation policy reviewed. ROSALES HENDRIX
--- NOTE | 2019-12-27 13:15 | NUR ---
Spoke with Susi Sandoval regarding this pt. Pt was ordered a type and cross for blood but no order for blood was entered. Jaime states that she will put in order for blood and pt is to receive transfusion while in dialysis.
--- NOTE | 2019-12-27 13:22 | NUR ---
After being on hold for several minutes spoke with dialysis call service. Notified of need for dialysis today with blood transfusion. States they will call the corrections nursecall center coordinator and have them call back.
--- NOTE | 2019-12-27 14:00 | NUR ---
Pt taken to dialysis room for treatment.
--- NOTE | 2019-12-27 14:09 | NUR ---
Checked blood with cooler conveyor loader in computer. States she will document vitals.
--- NOTE | 2019-12-27 16:05 | NUR ---
Pt remains in dialysis.
--- NOTE | 2019-12-27 18:12 | NUR ---
Pt taken from dialysis after treatment completed back to room via bed.
--- NOTE | 2019-12-27 18:18 | NUR ---
Son called in and updated on pt.
--- NOTE | 2019-12-27 18:25 | NUR ---
Covid swab was performed and walked to lab. Handed to Fan Quiles.
--- NOTE | 2019-12-27 20:15 | NUR ---
RESTING IN BED WITH EYES CLOSED; 02 INTACT. CALL LIGHT WITHIN REACH.
[2019-12-28] VITALS (8 sets, daily range): BP systolic 111–196; BP diastolic 43–81
--- NOTE | 2019-12-28 | NUR ---
RESTING IN BED WITH EYES CLOSED; 02 INTACT. CALL LIGHT WITHIN REACH.
[2019-12-28 06:24] LABS: BASO # 0.1 10*3/uL (0.0-0.1); BASO % 0.6 % (0.0-1.0); EOS # 0.1 10*3/uL (0.0-0.4); EOS % 0.8 % (1.0-4.0); HEMATOCRIT 29.6 % (37.0-47.0); LYMPH # 0.7 10*3/uL (1.3-4.4); LYMPH % 8.6 % (27.0-41.0); MEAN CELL VOLUME 81.5 fl (81.0-99.0); MEAN CORPUSCULAR HGB 24.5 pg (27.0-31.0); MEAN CORPUSCULAR HGB CONC 30.1 g/dl (33.0-37.0); MEAN PLATELET VOLUME 9.2 fl (9.6-12.3); MONO % 11.3 % (3.0-9.0); NEUT # 6.6 10*3/uL (2.3-7.9); NEUT % 78.1 % (47.0-73.0); PLATELET COUNT AUTOMATED 288 10*3/uL (130-400); RED BLOOD COUNT 3.63 10*6/uL (4.10-5.10); RED CELL DISTRI WIDTH 18.5 % (0-14.5); WHITE BLOOD COUNT 8.5 10*3/uL (4.8-10.8)
[2019-12-28 06:35] LABS: ALBUMIN 2.1 gm/dl (3.1-4.5); CREATININE 1.72 mg/dL (0.55-1.02); POTASSIUM 4.4 mmol/L (3.5-5.1); TOTAL PROTEIN 7.9 gm/dL (6.4-8.2)
--- NOTE | 2019-12-28 10:30 | NUR ---
PT'S SON CAME OUT TO NURSE'S STATION STATING HIS MOTHER WAS SOB. NURSE INTO ROOM TO ASSESS 2L O2 VIA NASAL CANNULA INTACT. PULSE OX 99%. PT STATES SHE FEELS THAT SHE CANNOT CATCH HER BREATH. VITALS OBTAINED. LISA SALDANA NOTIFIED OF ELEVATED BLOOD PRESSURE AND SHORTNESS OF BREATH.
--- NOTE | 2019-12-28 11:00 | NUR ---
PT'S BLOOD PRESSURE OBTAINED AND LISA SALDANA NOTIFIED.
--- NOTE | 2019-12-28 11:30 | NUR ---
PT STATES SHE DOES NOT FEEL SOB. NASAL CANNULA INTACT. NO S/S OF DTISTRESS BED IN LOWEST LOCKED POSITION, CALL LIGHT WITHIN REACH.
--- NOTE | 2019-12-28 19:29 | NUR ---
PT ASLEEP IN BED. RESPIRATIONS EASY. NO S/S OF DISTRESS NOTED. WILL MONITOR. CALL LIGHT IN REACH.
[2019-12-29] VITALS: BP 169/58; BP 174/60
--- NOTE | 2019-12-29 00:04 | NUR ---
NOTIFIED OF BP STILL ELEVATED FOLLOWING EVENING MEDS. NEW ORDERS TO FOLLOW.
--- NOTE | 2019-12-29 00:18 | NUR ---
5 MG IV HYDRALAZINE ADMINISTERED PER ONE TIME ORDER FOR ELEVATED BP. WILL MONITOR EFFECTIVENESS. CALL LIGHT IN REACH. BED ALARM INTACT.
[2019-12-29 01:20] VITALS: BP 138/40
--- NOTE | 2019-12-29 01:28 | NUR ---
EARLIER HYDRALAZINE EFFECTIVE. BP NOW 138/40 MANUALLY. PT STATES SHE FEELS MUCH BETTER, EVEN THOUGH SHE PREVIOUSLY DENIED ANY SYMPTOMS ASSOCIATED WITH HIGH BP. WILL CONTINUE TO MONITOR. CALL LIGHT LEFT IN REACH. BED ALARM INTACT
[2019-12-29 05:45] VITALS: BP 153/57
--- NOTE | 2019-12-29 05:45 | NUR ---
BP 153/57 PER AUTO BP CUFF. SCHEDULED PO LABETOLOL GIVEN PER ORDER. PT TOOK PILLS ONE AT A TIME WITHOUT DIFFICULTY. PT DENIES ANY NEEDS. POX 100% ON 2L NC. PT NOT O2 DEPENDENT. O2 DECREASED TO 1.5L NC. POX REMAINS 98% AND ABOVE. WILL CONTINUE TO MONITOR. CALL LIGHT IN REACH. BED ALARM INTACT.
--- NOTE | 2019-12-29 11:03 | NUR ---
[employer] FAXED UPDATES TO [facility].
[2019-12-29 12:00] VITALS: BP 133/41
--- NOTE | 2019-12-29 13:05 | NUR ---
PT IS CURRENTLY AT [facility] AND WILL RETURN WHEN MEDICALLY STABLE.
--- NOTE | 2019-12-29 13:15 | NUR ---
HUMAN RESOURCES BENEFITS COORDINATOR NOTIFIED OF PATIENT DISCHARGE. HUMAN RESOURCES BENEFITS COORDINATOR SPOKE WITH RN. TARA CADENA IS ABLE TO T TRANSPORT THE PATIENT TODAY AT 3 PM. HUMAN RESOURCES BENEFITS COORDINATOR LEFT MESSAGE FOR PATIENTS SON SIERRA NOTIFYING HIM OF THE TRANSPORT TIME. HUMAN RESOURCES BENEFITS COORDINATOR TO FAX DISCHARGE ORDERS.
--- NOTE | 2019-12-29 14:36 | NUR ---
IT PROGRAMMER SPOKE WITH RN WHO HAD CONCERNS ABOUT THE PATIENT TRANSPORTING VIA WHEELCHAIR. IT PROGRAMMER SPOKE WITH NO HILL AND ARRANGED FOR A 3:30PM TRANSPORT. RN IS AWARE, COBY CADENA HAS BEEN NOTIFIED.
--- NOTE | 2019-12-29 16:00 | NUR ---
Discharge instructions reviewed with patient/family. Patient receptive and verbalizes understanding. Follow-up care arranged. Written instructions given to patient/family. GIORGI MCCLENDON
== END 2019-12-29 17:53 | disposition other institution (70) | DRG 391 ==
LOC: ED 07:34 → EDHOLD 08:03 → 5E 12:18
PROVIDERS: Emergency Medicine; Registered Nurse; ADMIT Internal Medicine
PROC: 5A1D70Z Performance of Urinary Filtration, Intermittent, Less than 6 Hours Per Day (ICD-10-PCS; principal; 2019-12-27)
PROC: 30233N1 Transfusion of Nonautologous Red Blood Cells into Peripheral Vein, Percutaneous Approach (ICD-10-PCS; principal; 2019-12-27)
DX: K21.9 Gastro-esophageal reflux disease without esophagitis (principal); N18.6 End stage renal disease; E43 Unspecified severe protein-calorie malnutrition; E87.1 Hypo-osmolality and hyponatremia; I50.32 Chronic diastolic (congestive) heart failure; I13.2 Hypertensive heart and chronic kidney disease with heart failure and with stage 5 chronic kidney disease, or end stage renal disease; Z68.1 Body mass index [BMI] 19.9 or less, adult; D62 Acute posthemorrhagic anemia; D50.9 Iron deficiency anemia, unspecified; E78.00 Pure hypercholesterolemia, unspecified; E11.22 Type 2 diabetes mellitus with diabetic chronic kidney disease; G43.909 Migraine, unspecified, not intractable, without status migrainosus; M81.0 Age-related osteoporosis without current pathological fracture; E11.51 Type 2 diabetes mellitus with diabetic peripheral angiopathy without gangrene; Z20.828 Contact with and (suspected) exposure to other viral communicable diseases; E21.2 Other hyperparathyroidism; I25.10 Atherosclerotic heart disease of native coronary artery without angina pectoris; E55.9 Vitamin D deficiency, unspecified; I16.0 Hypertensive urgency; Z99.2 Dependence on renal dialysis; Z90.49 Acquired absence of other specified parts of digestive tract; Z90.710 Acquired absence of both cervix and uterus; Z98.51 Tubal ligation status; Z82.49 Family history of ischemic heart disease and other diseases of the circulatory system; Z91.041 Radiographic dye allergy status; Z79.82 Long term (current) use of aspirin; Z79.899 Other long term (current) drug therapy